=== PATIENT | male | born 1960 | race Caucasian/White ===

== ENCOUNTER 2020-05-05 14:01 | Outpatient (CLI) | payer BC, SELFPAY ==
--- NOTE | ~2020-05-05 | US_ITS ---
EXAMINATION:US venous doppler LE LT INDICATION:Lower extremity pain TECHNIQUE: Multiple grayscale, color flow and Doppler images of the left lower extremity deep venous systems were obtained and reviewed. COMPARISON:No prior studies for comparison. FINDINGS: The common femoral, superficial femoral and popliteal veins demonstrate normal respiratory variation, augmentation and compressibility. Color flow is also seen within the posterior tibial, pe roneal, greater saphenous and profunda veins. IMPRESSION: 1: No lower extremity deep venous thrombosis. Reviewed, dictated and finalized at location A. NESS BANKING MANAGER
== END 2020-05-05 14:02 | disposition home or self-care (01) ==
LOC: ANHIMG 14:11
PROVIDERS: PCP Family Medicine; Visit Provider Nurse Practitioner Family
DX: M79.662 Pain in left lower leg (principal)
CPT/HCPCS: 93971

== ENCOUNTER → 2022-02-10 09:30 | Outpatient (CLI) | payer BC, SELFPAY ==
--- NOTE | ~2022-02-10 | US_ITS ---
EXAMINATION: US scrotum doppler DATE: 02/10/2022 09:57 INDICATION: Scrotal pain, right testicular lump TECHNIQUE: Testicular sonogram utilizing grayscale and Doppler COMPARISON: None. FINDINGS: The right testis measures 4.9 x 2.8 x 4.0 cm. The left testis measures 5.3 x 2.3 x 3.1 cm. There is normal vascular flow to both testes. The right epididymis contains a 2.4 x 2.2 cm cyst or sp ermatocele. The left epididymis contains a 7 mm x 6 mm cyst or spermatocele. There are small bilatera l hydroceles. IMPRESSION: 1. Cyst or spermatocele of the right epididymis corresponding to the palpable abnormality. Reviewed, dictated and finalized at location F. IMPRESSION: 1. Cyst or spermatocele of the right epididymis corresponding to the palpable a bnormality.
== END ==
PROVIDERS: PCP Physician Assistant; Visit Provider Physician Assistant
DX: N50.82 Scrotal pain (principal)
CPT/HCPCS: 76870; 93976

== ENCOUNTER 2022-04-14 17:51 | Inpatient (IN) | payer BC, SELFPAY ==
[2022-04-14] VITALS (9 sets, daily range): BP systolic 108–143; BP diastolic 59–70; PULSE 81–87; RESP 22–36; TEMP 37.1; O2SAT 82–95
--- NOTE | ~2022-04-14 | XR_ITS ---
EXAMINATION: XR chest 1V portable INDICATION: COVID 19 pneumonia TECHNIQUE: Portable AP chest at 0544 hours COMPARISON: 04/14/2022 FINDINGS: There are patchy opacities throughout all lung zones with interval worsening. No pleural ef fusion or pneumothorax. Cardiomegaly is noted. IMPRESSION: 1. Diffuse lung disease with interval worsening, consistent with pneumonia and/or pulmonary edema. Reviewed, dictated and finalized at location A. EL FARMER IMPRESSION: 1. Diffuse lung disease with interval worsening, consistent with pneumonia and/ or pulmonary edema.
--- NOTE | ~2022-04-14 | CT_ITS ---
EXAMINATION: CTA chest PE protocol DATE: 04/14/2022 18:53 INDICATION: Dyspnea. Hypoxia. COVID positive. TECHNIQUE: Computed tomography (CT) pulmonary angiogram of the chest was performed with 100 mL Omnipa que-350 intravenous contrast. Additional 3D reconstructions utilizing coronal maximum intensity proje ction (MIP) were performed. Automated exposure control and iterative reconstruction technique were em ployed. The dose-length product was 1080.22 mGy-cm. COMPARISON: AP abdomen and pelvis dated 10/05/2011 FINDINGS: Good contrast opacification of the pulmonary arteries. There is mild streak artifact from dense contr ast in the superior vena cava and right atrium. Respiratory motion, mild in the mid and upper lung zo jacqueline and severe at the lower lung zones which mildly decreases sensitivity in the basilar segmental pu lmonary arteries and renders assessment in many of the more peripheral basilar subsegmental pulmonary arteries essentially nondiagnostic. No evident pulmonary embolism. Extensive scattered bilateral pat cj groundglass opacities in the right relatively sparing the upper lung zones most likely related to multifocal pneumonia versus less likely pulmonary edema. Calcified right middle lobe nodule along wi th calcified bilateral hilar and mediastinal lymph nodes and numerous small splenic calcifications, a ll consistent with old granulomatous disease. No pleural effusion. Borderline heart size. No pericard ial effusion. Thoracic aorta is normal in caliber with no dissection. Unchanged mild right hilar lymp hadenopathy along with mild mediastinal lymphadenopathy which is likely reactive. Diffuse hepatic lyubov atosis. Chronic mild likely physiologic anterior wedging at T11 and T12. There are bridging osteophyt es at multiple levels in the spine, consistent with diffuse idiopathic skeletal hyperostosis (DISH). IMPRESSION: 1. No definitive pulmonary embolism with sensitivity decreased in the basilar segmental and more sign ificantly in the basilar subsegmental pulmonary arteries due to primarily to respiratory motion. 2. Diffuse patchy bilateral groundglass opacities throughout both lungs relatively sparing the upper lung zones most suspicious for pneumonia with differential including pulmonary edema. 3. Mild cardiomegaly. 4. Mild mediastinal and right hilar lymphadenopathy which is likely reactive. Reviewed, dictated and finalized at location A. PHERE COMMERCE CONSULTANT IMPRESSION: 1. No definitive pulmonary embolism with sensitivity decreased in the basilar s egmental and more significantly in the basilar subsegmental pulmonary arteries due to primarily to respiratory motion. 2. Diffuse patchy bilateral groundglass opacities throughout both lungs relativ anabella sparing the upper lung zones most suspicious for pneumonia with differentia l including pulmonary edema. 3. Mild cardiomegaly. 4. Mild mediastinal and right hilar lymphadenopathy which is likely reactive.
--- NOTE | ~2022-04-14 | XR_ITS ---
EXAMINATION: XR chest 1V portable DATE: 04/18/2022 06:14 INDICATION: Respiratory failure. TECHNIQUE: A single frontal view of the chest was obtained. COMPARISON: Chest single view 04/17/2022, chest CT 04/14/2022 FINDINGS: A calcified right lung nodule and calcified right hilar lymph nodes are consistent with old granulomatous disease. There are patchy airspace opacities in all lung zones bilaterally. No pleural effusion or pneumothorax. Cardiomegaly is noted. A right upper extremity peripherally inserted centr al venous catheter (PICC) is seen with tip at the superior cavoatrial junction. IMPRESSION: 1. Stable diffuse lung disease, consistent with COVID-19 pneumonia. 2. Cardiomegaly. Reviewed, dictated and finalized at location A. HOTHERAPIST
--- NOTE | ~2022-04-14 | XR_ITS ---
EXAMINATION: XR chest ET placement DATE: 04/20/2022 10:42 INDICATION: Intubation. TECHNIQUE: A single frontal view of the chest was obtained on 2 radiographs. COMPARISON: Chest single view at 6:24 AM FINDINGS: There are airspace opacities in all lung zones bilaterally. A calcified right lung nodule a nd calcified right hilar lymph nodes are consistent with old granulomatous disease. No pleural effusi on or pneumothorax. Cardiomegaly is noted. The endotracheal tube tip is 5.0 cm above the aleyda. The nasogastric tube tip is beyond the inferior margin of the radiograph, but at least to the stomach. A right upper extremity peripherally inserted central venous catheter (PICC) is seen with tip in the mai perior vena cava. IMPRESSION: 1. Stable diffuse lung disease, consistent with COVID-19 pneumonia. 2. Cardiomegaly. Reviewed, dictated and finalized at location A. ANICAL TECH
--- NOTE | ~2022-04-14 | XR_ITS ---
EXAMINATION: XR chest 1V portable DATE: 04/21/2022 06:25 INDICATION: Respiratory failure. TECHNIQUE: A single frontal view of the chest was obtained on 2 radiographs. COMPARISON: Chest single view 04/20/2022, chest CT 04/14/2022 FINDINGS: There are airspace opacities in all lung zones bilaterally. A calcified right lung nodule a nd calcified right hilar lymph nodes are consistent with old granulomatous disease. No pleural effusi on or pneumothorax. The heart size is normal. The endotracheal tube tip is 3.9 cm above the aleyda. A right upper extremity peripherally inserted central venous catheter (PICC) is seen with tip in the s uperior vena cava. The nasogastric tube tip is in the distal stomach. IMPRESSION: 1. Worsened diffuse lung disease, consistent with pneumonia versus pulmonary edema versus acute respi ratory distress syndrome (ARDS). Reviewed, dictated and finalized at location A. ONAL SALES MANAGER IMPRESSION: 1. Worsened diffuse lung disease, consistent with pneumonia versus pulmonary ed prakash versus acute respiratory distress syndrome (ARDS).
--- NOTE | ~2022-04-14 | XR_ITS ---
EXAMINATION: XR chest 1V portable DATE: 04/19/2022 05:58 INDICATION: Respiratory failure TECHNIQUE: frontal and lateral views of the chest were obtained. COMPARISON: Chest radiograph dated 04/18/2022 FINDINGS: No significant change in patchy airspace opacities throughout both lungs. Calcified nodule at the rig ht lung base consistent with old granulomatous disease. No pleural effusion or pneumothorax. Cardiome toribio. IMPRESSION: 1. Unchanged diffuse bilateral lung disease which could represent pneumonia or pulmonary edema. 2. Cardiomegaly. Reviewed, dictated and finalized at location A. PROCESSING UTILITY WORKER
--- NOTE | ~2022-04-14 | XR_ITS ---
EXAMINATION: XR chest 1V portable DATE: 04/20/2022 06:30 INDICATION: Respiratory failure. TECHNIQUE: A single frontal view of the chest was obtained. COMPARISON: Chest single view 04/19/2022, chest CT 04/14/2022 FINDINGS: There are airspace opacities in all lung zones bilaterally. A calcified right lung nodule a nd calcified right hilar lymph nodes are consistent with old granulomatous disease. No pleural effusi on or pneumothorax. Cardiomegaly is noted. A right upper extremity peripherally inserted central veno us catheter (PICC) is seen with tip in the superior vena cava. IMPRESSION: 1. Stable diffuse lung disease, consistent with COVID-19 pneumonia. 2. Cardiomegaly. Reviewed, dictated and finalized at location A. S ANALYTICS MANAGER
--- NOTE | ~2022-04-14 | XR_ITS ---
EXAMINATION: XR abdomen NG/feed tube insert DATE: 04/20/2022 10:42 INDICATION: Nasogastric tube placement. TECHNIQUE: A semierect view of the abdomen was obtained. COMPARISON: None. FINDINGS: The lower abdomen and right lateral aspect of the abdomen are excluded. The nasogastric tub e tip is in the stomach. IMPRESSION: 1. Nasogastric tube tip in the stomach. Reviewed, dictated and finalized at location A. S AND MARKETING COORDINATOR
--- NOTE | ~2022-04-14 | XR_ITS ---
EXAMINATION: XR chest 1V portable DATE: 04/17/2022 06:43 INDICATION: Respiratory failure. TECHNIQUE: A single frontal view of the chest was obtained on 2 radiographs. COMPARISON: Chest single view 04/16/2022, chest CT 04/14/2022 FINDINGS: There are patchy airspace opacities throughout the lungs bilaterally. A calcified right jeet g nodule and calcified right hilar lymph nodes are consistent with old granulomatous disease. No pleu ral effusion or pneumothorax. Cardiomegaly is noted. There are prominent paracardial fat pads. IMPRESSION: 1. Diffuse lung disease with mild worsening, consistent with COVID-19 pneumonia. 2. Cardiomegaly. Reviewed, dictated and finalized at location A. AL ASSAULT RESPONSE COORDINATOR IMPRESSION: 1. Diffuse lung disease with mild worsening, consistent with COVID-19 pneumonia . 2. Cardiomegaly.
--- NOTE | ~2022-04-14 | XR_ITS ---
EXAMINATION: XR chest 1V portable DATE: 04/14/2022 18:16 INDICATION: Shortness of breath and hypoxia TECHNIQUE: frontal view of the chest was obtained. COMPARISON: Chest radiograph dated 09/15/2011 FINDINGS: New patchy airspace opacities in the bilateral mid and lower lung zones. Unchanged calcified nodule a t the right lung base consistent with old granulomatous disease. No pleural effusion or pneumothorax. Mild cardiomegaly. IMPRESSION: 1. Patchy airspace opacities in bilateral mid and lower lung zones which could represent pulmonary ed prakash or pneumonia. 2. Cardiomegaly. Reviewed, dictated and finalized at location A. ECTOR AND UNLOADER IMPRESSION: 1. Patchy airspace opacities in bilateral mid and lower lung zones which could represent pulmonary edema or pneumonia. 2. Cardiomegaly.
--- NOTE | 2022-04-14 18:06 | ECG_ITS ---
Measurements Intervals [place] Rate: 84 P: 158 PA: 206 QRS: 195 QRSD: 117 T: 135 QT: 335 QTc: 398 Interpretive Statements SINUS RHYTHM ARM LEADS REVERSED [INVERTED P AND QRS IN I] ATYPICAL ECG NO PREVIOUS ECG AVAILABLE FOR COMPARISON Electronically Signed On 04-15-2022 8:38:29 FIELD SERVICES DIRECTOR by Linette Julian M.D.
--- NOTE | 2022-04-14 18:19 | ED.SOB ---
HPI - SOB/Dyspnea General Chief Complaint: Shortness of Breath/Dyspnea Stated Complaint: Covid + Sunday, SOB, dyspnea Time Seen by Provider: 04/14/22 18:10 History of Present Illness HPI Narrative: Patient is a 61-year-old male with a history of hypertension, hyperlipidemia, GERD, diabetes presenting with shortness of breath. Patient states that he tested positive for COVID-19 approximately 5 days ago. Since that time he has been recovering at home. States that he has been feeling generally fatigued as well as short of breath especially whenever he exerts himself or talks. States that he has been checking his oxygen levels and they dipped into the 60s a couple of days ago. Patient states that he woke up feeling short of breath this morning and he was keeping an eye on his pulse ox and states that it dropped into the low 70s. States that he was talking to family members who advised that he come to the ER. Currently, he states that he feels short of breath only when he talks. He denies chest pain, lightheadedness, palpitations. Denies headache, fevers, abdominal pain, nausea or vomiting, diarrhea, leg swelling. Related Data Home Medications Medication Instructions Recorded Confirmed aspirin 81 mg tablet,delayed 81 mg PO DAILY 04/15/19 04/15/22 release losartan 100 mg tablet 100 mg PO DAILY 04/15/19 04/15/22 cetirizine 10 mg tablet (Zyrtec) 10 mg PO DAILY 04/15/22 04/15/22 ibuprofen 600 mg tablet 600 mg PO Q6H PRN Pain 04/15/22 04/15/22 Allergies Allergy/AdvReac Type Severity Reaction Status Date / Time No Known Allergies Allergy Unknown Verified 02/07/22 09:59 Review of Systems Review of Systems: All systems reviewed & are unremarkable except as noted in HPI and below PMFSH Past Medical History Medical History GERD (gastroesophageal reflux disease) IFG (impaired fasting glucose) Obesity Obesity Surgical History Surgical History History of bilateral knee replacement Family History Family History Sibling Patient's sister is in good health Patient's brother is in good health Social History Social History Social History: Smoking status: Never smoker Second hand tobacco smoke exposure: No Alcohol intake: never Substance use: never Substance use type: does not use Lack of Transportation: No Lack of Food: Never True Current Housing: I Have Housing Concerned About Future Housing: No Difficulty Paying Gas/Electric Bills: No Difficulty Paying for Meds: No Currently Unemployed: No Education: Decline to Answer Difficulty w/ Childcare or Family Care: No Gender identity (if verbalized by the patient): Male Sexual Orientation (if Verbalized by the Patient): Straight or Heterosexual Spiritual care concerns: No Exam Narrative: GENERAL: Ill-appearing but in no acute distress HEAD: Normocephalic, atraumatic. EYES: PERRLA and EOMI. ENT: Nares clear, no rhinorrhea or epistaxis. Mucous membranes moist. NECK: Supple. CHEST: Clear to auscultation. Tachypnea, saturating 90 to 92% on 6 L nasal cannula HEART: Regular rate and rhythm. No murmur heard. Normal peripheral pulses. ABDOMEN: Soft, nontender, nondistended, normal active bowel sounds. EXTREMITIES: Normal range of motion. No edema. SKIN: Warm, dry, no rash. NEURO: No focal deficits. Alert and oriented x3. PSYCH: Normal mood and affect. Course Vital Signs Vital signs: Vital Signs Temperature 98.7 F 04/14/22 18:02 Pulse Rate 83 04/14/22 18:02 Respiratory Rate 36 H 04/14/22 18:02 Blood Pressure 117/59 L 04/14/22 18:02 Pulse Oximetry 82 L 04/14/22 18:02 Oxygen Delivery Room Air 04/14/22 18:02 Temperature 97.6 F 04/15/22 20:00 Pulse Rate 68 04/15/22 21:00 Respi
[2022-04-14 18:23] LABS: Basophils Absolute Auto 0.1 K/mm3 (0.0-0.1); Basophils Percent Auto 0.4 % (0.2-1.2); Eosinophils Absolute Auto 0.1 K/mm3 (0-0.3); Eosinophils Percent Auto 1.2 % (0-4.4); Hematocrit 36.4 % (42.0-52.0); Hemoglobin 12.5 g/dL (14.0-18.0); Immature Granulocyte Absolute 0.24 K/mm3 (0.00-0.031); Immature Granulocyte Percent A 2.2 % (0-0.5); Lymphocytes Absolute Auto 0.54 K/mm3 (0.9-3.2); Lymphocytes Percent Auto 4.9 % (18.3-44.2); Mean Corpuscular HGB Conc 34.3 g/dl (32-36); Mean Corpuscular Hemoglobin 28.9 pg (26-34); Mean Corpuscular Volume 84.3 fl (80-100); Mean Platelet Volume 9.4 fl (7.4-10.4); Monocytes Absolute Auto 0.5 K/mm3 (0.1-0.6); Monocytes Percent Auto 4.7 % (2.6-8.5); Neutrophils Absolute Auto 9.7 K/mm3 (1.3-6.7); Neutrophils Percent Auto 86.6 % (45.5-73.1); Platelet Count Result 201 k/mm3 (150-375); Red Blood Count 4.32 M/mm3 (4.6-6.20); Red Cell Distribution Width 13.6 % (11.5-14.5); White Blood Count 11.1 K/mm3 (4.5-10.0)
[2022-04-14 18:32] LABS: Alanine Aminotransferase 31 U/L (6-50); Albumin Level 4.2 g/dL (3.5-5.1); Alkaline Phosphatase 85 U/L (38-126); Anion Gap 10 mmol/L (8-16); Aspartate Amino Transferase 35 U/L (17-59); Bilirubin,Total 1.6 mg/dL (0.2-1.3); Blood Urea Nitrogen 35 mg/dL (9-20); Calcium 8.6 mg/dL (8.4-10.2); Carbon Dioxide 26 mmol/L (22-30); Chloride 93 mmol/L (98-107); Estimated CRCL calculation 58 ml/min; Estimated Glomerular Filt Rate 36; Glucose 275 mg/dL (65-110); Potassium 3.9 mmol/L (3.4-5.0); Sodium 129 mmol/L (137-145)
[2022-04-14 18:33] LABS: INR 1.2; Prothrombin Time 14.5 Seconds (11.1-14.7)
[2022-04-14 18:34] LABS: Partial Thromboplastin Time 41.3 SECONDS (22.3-36.8)
[2022-04-14] MEDS: SODIUM CHLORIDE 0.9% IV 1,000 ML 999 ML IV CONT (18:35)
[2022-04-14 18:44] LABS: NT Pro B Type Natriuretic Pept 78 pg/mL (5-100); Troponin I < 0.012 ng/mL (0.000-0.034)
[2022-04-14 19:14] LABS: Influenza A QL RT-PCR Negative (Negative); Influenza B QL RT-PCR Negative (Negative); SARS-CoV-2 RNA PCR Positive
--- NOTE | 2022-04-14 20:16 | PM.IMHP ---
H&P: HPI History of Present Illness Date/Time: 04/14/22 20:16 Chief Complaint: sob Narrative: This is a 61-year-old male with past medical history significant for morbid obesity, type 2 diabetes mellitus, hypertension, GERD. PATIENT PRESENTED TO THE EMERGENCY ROOM DUE TO WORSENING SHORTNESS OF BREATH, LOSS OF SENSE OF TASTE AND SMELL, COUGH, NONPRODUCTIVE, body aches and pains, fever fevers, chills, rigors. Patient tested positive for COVID with a home kit test. Preliminary workup here was significant for chest x-ray was reported as: IMPRESSION: 1. Patchy airspace opacities in bilateral mid and lower lung zones which could represent pulmonary edema or pneumonia. 2. Cardiomegaly. CT angiogram of the chest IMPRESSION: 1. No definitive pulmonary embolism with sensitivity decreased in the basilar segmental and more significantly in the basilar subsegmental pulmonary arteries due to primarily to respiratory motion. 2. Diffuse patchy bilateral groundglass opacities throughout both lungs relatively sparing the upper lung zones most suspicious for pneumonia with differential including pulmonary edema. 3. Mild cardiomegaly. 4. Mild mediastinal and right hilar lymphadenopathy which is likely reactive. Review of Systems Review of Systems: shortness of breath, body aches and pains, fevers, chills, rigors Constitutional: Constitutional: Reports body ache(s), Reports chills, Reports fever(s), Reports malaise, Reports night sweats and Reports poor appetite Eyes: Eyes: Denies change in vision ENT: Denies dysphagia, Denies vertigo, Denies dizziness and Denies odynophagia Cardiovascular: Cardiovascular: Denies chest pain and Denies leg edema Respiratory: Respiratory: Reports cough and Reports dyspnea Gastrointestinal: Gastrointestinal: Denies abdominal pain, Denies dyspepsia, Denies heartburn, Denies diarrhea, Denies nausea and Denies vomiting Genitourinary: Genitourinary: Denies dysuria Musculoskeletal: Musculoskeletal: Reports myalgias Integumentary/Breasts: Skin/Breast: Denies rash Neurologic: Denies vertigo, Denies dizziness, Denies focal weakness and Denies Sensory deficit (Neuro) Psychiatric: Psychiatric: Reports no additional psychiatric complaints and Reports as per HPI Endocrine: Endocrine: Reports no additional endocrine complaints and Reports as per HPI Hematologic/Lymphatic: Hematologic/Lymphatic: Reports no additional hematologic/lymphatic complaints and Reports as per HPI Allergic/Immunologic: Allergic/Immunologic: Reports no additional allergic/immunologic complaints and Reports as per HPI PMFSH Past Medical History Medical History GERD (gastroesophageal reflux disease) IFG (impaired fasting glucose) Obesity Obesity Surgical History Surgical History History of bilateral knee replacement Family History Family History Sibling Patient's sister is in good health Patient's brother is in good health Social History Social History Social History: Smoking status: Never smoker Second hand tobacco smoke exposure: No Alcohol intake: never Substance use: never Substance use type: does not use Gender identity (if verbalized by the patient): Male Sexual Orientation (if Verbalized by the Patient): Straight or Heterosexual Meds Home Medications and Allergies Home Medications Medication Instructions Recorded Confirmed Type aspirin 81 mg tablet,delayed 81 mg PO DAILY 04/15/19 02/17/22 History release losartan 100 mg tablet 100 mg PO DAILY 04/15/19 02/17/22 History atorvastatin 20 mg tablet 20 mg PO DAILY 04/21/20 02/17/22 History ezetimibe 10 mg tablet (Zetia) 10 mg PO DAILY #90 tabs 03/14/21 02/17/22 Rx amlodipine 10 mg tablet (Norvasc) 10 mg PO DAILY #90 tab
[2022-04-14 21:43] LABS: Alveolar/Arterial O2 Gradient 55.3 mmHg; Base Excess ABG -3.2 mEq/l (+/-2.0); Fractional Inspired Oxygen 21 %; HCO3 ABG 20.1 mEq/l (22.0-26.0); Oxygen Content ABG 16.5 %vol (16.0-22.0); Oxygen Saturation ABG 90.6 % (95.0-100.0); PCO2 ABG 31.4 mmHg (35.0-45.0); PO2 ABG 56.8 mmHg (80.0-100.0); Total Hemoglobin 13.4 g/dL (12.0-18.0); pH ABG 7.425 (7.350-7.450)
[2022-04-14 21:46] LABS: Device NASAL CANNULA; Modified Allen's Test Pass; Oxyhemoglobin 87.6 % THb (90.0-100.0); Site Drawn RIGHT RADIAL
[2022-04-14 22:01] LABS: Troponin I < 0.012 ng/mL (0.000-0.034)
[2022-04-14] MEDS: cefTRIAXone 2 GM in SODIUM CHLORIDE 0.9% IV 100 ML 200 ML IVPB (22:15)
--- NOTE | 2022-04-14 22:23 | PCRCNOTE ---
per MD verbal order pt placed on BIPAP 11/09.
--- NOTE | 2022-04-14 22:41 | PC.NURSE ---
[place] dr zhang ok to cancel plasma at this time.
[2022-04-15] VITALS (28 sets, daily range): BP systolic 109–142; BP diastolic 52–63; PULSE 61–121; RESP 22–33; TEMP 36.2–37.3; O2SAT 87–94
[2022-04-15] MEDS: REMDESIVIR 200 MG/NS 250 ML 200 MG/250 ML BAG 250 MG IVPB (00:24)
[2022-04-15] MEDS: ALBUTEROL SULFATE NEB 2.5 MG/3 ML INH INHALATION ×5 (02:55→20:55)
[2022-04-15] MEDS: IPRATROPIUM BR 0.02% INH SOLN 0.5 MG/2.5 ML VIAL INHALATION ×5 (02:55→20:56)
--- NOTE | 2022-04-15 03:41 | ADMGEN ---
This patient, Charles Posadas, was admitted to IMU Room 207-01 on 04/15/22 at 0232. Patient/family oriented to hospital policies and general routines including ID bracelet, bed and alarms, visiting hours, pain management, procedures, bathroom and other care routines, personal items, smoking policy, room service/diet, and visiting hours. Information on how to activate the Rapid Response Team has been discussed. Patient/Family are encouraged to report perceived risks to care and to ask questions if they do not understand what they are told or what they should do.
[2022-04-15 05:30] LABS: INR 1.3; Prothrombin Time 15.7 Seconds (11.1-14.7)
[2022-04-15 05:43] LABS: Alanine Aminotransferase 27 U/L (6-50); Estimated CRCL calculation 61 ml/min; Estimated Glomerular Filt Rate 38
--- NOTE | 2022-04-15 09:43 | PM.IMPN ---
Progress Note: A&P Assessment and Plan (1) Pneumonia due to 2019 novel coronavirus: Code(s): U07.1 - COVID-19; J12.82 - Pneumonia due to coronavirus disease 2019 Status: Acute Assessment and Plan: patient started on remdesivir Rocephin and Zithromax for antibacterial coverage blood cultures in progress supportive care (2) Respiratory failure with hypoxia: Code(s): J96.91 - Respiratory failure, unspecified with hypoxia Status: Acute Assessment and Plan: continue supplemental oxygen by nasal cannula (3) GERD (gastroesophageal reflux disease): Code(s): K21.9 - Gastro-esophageal reflux disease without esophagitis Status: Acute Assessment and Plan: PPI (4) Diastolic dysfunction: Code(s): I51.89 - Other ill-defined heart diseases Status: Acute Assessment and Plan: continue to monitor (5) SHANNAN (obstructive sleep apnea): Code(s): G47.33 - Obstructive sleep apnea (adult) (pediatric) Status: Acute Assessment and Plan: CPAP at nighttime Subjective Date/time seen: 04/15/22 09:43 Patient was seen during the morning rounds today. Mild shortness of breath. No chest pain. No abdominal pain, nausea, no vomiting. Mood stable. Review of Systems Constitutional: Constitutional: Reports body ache(s), Reports chills, Reports fever(s), Reports malaise, Reports night sweats and Reports poor appetite Eyes: Eyes: Denies change in vision ENT: Denies dysphagia, Denies vertigo, Denies dizziness and Denies odynophagia Cardiovascular: Cardiovascular: Denies chest pain, Denies leg edema and Reports dyspnea Respiratory: Respiratory: Reports cough and Reports dyspnea Gastrointestinal: Gastrointestinal: Denies abdominal pain, Denies dysphagia, Denies dyspepsia, Denies heartburn, Denies diarrhea, Denies nausea, Denies odynophagia and Denies vomiting Genitourinary: Genitourinary: Denies dysuria Musculoskeletal: Musculoskeletal: Reports myalgias Integumentary/Breasts: Skin/Breast: Denies rash Neurologic: Denies vertigo, Denies dizziness, Denies focal weakness and Denies Sensory deficit (Neuro) Psychiatric: Psychiatric: Reports no additional psychiatric complaints and Reports as per HPI Endocrine: Endocrine: Reports no additional endocrine complaints and Reports as per HPI Hematologic/Lymphatic: Hematologic/Lymphatic: Reports no additional hematologic/lymphatic complaints and Reports as per HPI Allergic/Immunologic: Allergic/Immunologic: Reports no additional allergic/immunologic complaints and Reports as per HPI Exam Narrative: patient is laying in a stretcher Const: General: cooperative, comfortable, no acute distress, well developed, alert, awake, ill appearing, average body habitus and overweight Nutritional Appearance: average body habitus and overweight Orientation/consciousness: patient oriented x3 HENMT: Head: normal to inspection, normocephalic and atraumatic Ears: hearing grossly normal bilaterally Face/Nose/Sinus: normal facial exam Face and sinus: normal facial exam Eyes: General: appearance normal, both eyes and all related structures Pupils: Equal, round and reactive pupils present EOM: EOMs intact bilaterally Neck: Neck: full ROM, no lymphadenopathy and no JVD Thyroid: thyroid normal Lymphatic: no lymphadenopathy noted Resp: Effort & Inspection: normal respiratory effort and able to speak in complete sentences Auscultation: clear to auscultation bilaterally and diminished lung sounds Cardio: Jugular venous distension: no JVD Rate: regular rate Rhythm: regular rhythm Heart sounds: S1 normal heart sound present and S2 normal heart sound present GI: Inspection: Pannus present and obesity : General: Yes deferred Skin: Rashes: no rashes Wounds: no wounds Neuro: General: patient oriented x3, CN's II-XI intact bilaterally and Unable to assess gait Cranial nerves: Yes CN's II-XII intact bilaterally and Ye
--- NOTE | 2022-04-15 10:13 | PM.CNPUL ---
Assessment and Plan Assessment and plan (1) Pneumonia due to 2019 novel coronavirus: Code(s): U07.1 - COVID-19; J12.82 - Pneumonia due to coronavirus disease 2019 Status: Acute Assessment and Plan: Patient tested positive at home for COVID-19 on 04/09 and in hospital on 04/14 and started on remdesivir, dexamethasone on 04/14 and I have ordered tocilizumab on 04/15. Emperically started on ceftriaxone and azithromycin. - Remdesivir for 10 days Unless he should recover and tolerate room air with rest, ambulation and while sleeping. - Dexamethasone 6 mg IV for 10 days - Continuous pulse oximetry - Prone positioning as tolerated. he is morbidly obese and this is difficult to achieve. - Avoid any fluid overload. - emperic azihtromycin and ceftraixone for CAP. - Albuterol and ipratroprium inhaler Q 4 for now, no wheezes. - Negative influenza swab. Keep saturations are 90-94% with Noninvasive ventilator with the AVAPS mode. I discussed code status with patient and he does wish to be intubated if needed. I notified the floor scrubber of this patient. Discussed with Dr. Ayala and Dr. Hwang Will follow with you. (2) Respiratory failure with hypoxia: Code(s): J96.91 - Respiratory failure, unspecified with hypoxia Status: Acute Assessment and Plan: Etiology of hypoxic respiratory failure is likely COVID pneumonia. patient has a history of hypertension but normal LVEF on last echo with grade 1 diastolic dysfunction. BNP is 78 and no evidence of fluid overload. CT angiogram with was without pulmonary embolism. 04/14 16:00 RA sats 82%, 6 L NC 92% with ABG 7.43//04/14 22:30 BiPAP 15/5 50% initiated 04/15 02:30 BiPAP 15/5 50%, sats 94% 04/15 08:00 BiPAP 15/5 90%, sats 92% 04/15 11:30 AVAPS 650, EPAP 10, 90% sats 91%. I will check a blood gas. Goal saturations are 90-94%. History of Present Illness History of Present Illness Consult date: 04/15/22 Chief complaint: Covid+ Narrative: 04/15/2022: This is a new pulmonary consult for COVID pneumonia. 61-year-old man with a history of obstructive sleep apnea, hypertension, hyperlipidemia, GERD, diabetes, coronary artery disease with an out obstructive coronary catheterization in 2011, Right renal cell carcinoma status post nephrectomy, bilateral knee replacements presented to [facility] Emergency Department on 04/14 with shortness of breath. patient has his right knee replaced March of 2021 and his left knee replaced in August of 2021. After his 1st knee replacement he could not go back to work. He has been slowly recovering and states that he can only walk 1 block because of dyspnea on exertion. He has had weight gain since these operations. Patient is a never smoker, was exposed to secondhand smoke from both parents. No secondhand smoke currently. Patient denies and blasting, welding, asbestos were, professional painting. 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 He is exposed to toxic chemicals and wears a face shield regularly but does not wear any respiratory protection. Patient developed sinus congestion and shortness of breath that were different than his usual sinus congestion and performed a home COVID test on 04/09 2022. His saturations were 93%. He called his PCP and was instructed to self quarantine and call for worsening symptoms. On 04/10 Patient developed fever, worsening short breath and patient's saturations were 90%. on 04/11 the patient notice that his saturations were in the mid 60s but would come up into the mid 80s. On 04/12 the patient's saturation remained in the 70s. On 04/13 the saturations remained in the 70s and 80s for most of the day. The patient continued to have fever on 04/13. Patient presented to the emergency room on 04/14 and in the emergency room, room air saturations were 82% and increased to 90-92% on 6 L. Lungs were clear to
[2022-04-15] MEDS: amLODIPine BESYLATE 5 MG TABLET 10 MG PO (11:33)
[2022-04-15] MEDS: EZETIMIBE 10 MG TABLET PO (11:33)
[2022-04-15] MEDS: ASPIRIN 81 MG ENTERIC TABLET PO (11:33)
[2022-04-15] MEDS: LORATADINE 10 MG TABLET PO (11:33)
[2022-04-15] MEDS: minoxidiL 2.5 MG TABLET PO (11:33)
[2022-04-15] MEDS: SPIRONOLACTONE 25 MG TABLET PO (11:34)
[2022-04-15] MEDS: LOSARTAN POTASSIUM 100 MG TABLET PO (12:19)
[2022-04-15] MEDS: TOCILIZUMAB 800 MG in SODIUM CHLORIDE 0.9% IV 60 ML 100 MG IVPB (12:20)
[2022-04-15 12:26] LABS: Alveolar/Arterial O2 Gradient 545.8 mmHg; Base Excess ABG -4.9 mEq/l (+/-2.0); Fractional Inspired Oxygen 90 %; HCO3 ABG 19.8 mEq/l (22.0-26.0); Oxygen Content ABG 16.4 %vol (16.0-22.0); Oxygen Saturation ABG 90.3 % (95.0-100.0); Oxyhemoglobin 88.5 % THb (90.0-100.0); PCO2 ABG 35.4 mmHg (35.0-45.0); PO2 ABG 59.6 mmHg (80.0-100.0); PO2 FiO2 Ratio Arterial Blood 0.66 %; Total Hemoglobin 13.2 g/dL (12.0-18.0); pH ABG 7.365 (7.350-7.450)
[2022-04-15 12:27] LABS: Device NON-INVASIVE VENT; Modified Allen's Test Pass; Non-Invasive Expiratory Pressure 10 CMH2O; Non-Invasive Vent Rate 20 /MIN; Site Drawn LEFT RADIAL
[2022-04-15 12:43] LABS: CRP 37.1 mg/dL (<1.0)
[2022-04-15] MEDS: SODIUM CHLORIDE 0.45% 1,000 ML 50 ML IV CONT (15:11)
[2022-04-15] MEDS: REMDESIVIR 100 MG/NS 250 ML 100 MG/250 ML BAG 250 MG IVPB (22:14)
[2022-04-16] VITALS (27 sets, daily range): BP systolic 104–156; BP diastolic 38–88; PULSE 58–80; RESP 22–31; TEMP 35.8–36.9; O2SAT 86–100
[2022-04-16] MEDS: ALBUTEROL SULFATE NEB 2.5 MG/3 ML INH INHALATION ×4 (02:38→13:38)
[2022-04-16] MEDS: IPRATROPIUM BR 0.02% INH SOLN 0.5 MG/2.5 ML VIAL INHALATION ×6 (02:38→23:24)
[2022-04-16 07:01] LABS: Alanine Aminotransferase 27 U/L (6-50); Estimated CRCL calculation 61 ml/min; Estimated Glomerular Filt Rate 38
[2022-04-16 07:05] LABS: INR 1.3; Prothrombin Time 15.8 Seconds (11.1-14.7)
--- NOTE | 2022-04-16 08:43 | PM.PNPUL ---
Progress Note: A&P Assessment and Plan (1) Pneumonia due to 2019 novel coronavirus: Code(s): U07.1 - COVID-19; J12.82 - Pneumonia due to coronavirus disease 2019 Status: Acute Assessment and Plan: Patient tested positive at home for COVID-19 on 04/09 and in hospital on 04/14 and started on remdesivir, dexamethasone on 04/14 and tocilizumab on 04/15. Emperically started on ceftriaxone and azithromycin. - Remdesivir for 10 days Unless he should recover and tolerate room air with rest, ambulation and while sleeping. - Dexamethasone 6 mg IV for 10 days - Continuous pulse oximetry - Prone positioning as tolerated. he is morbidly obese and this is difficult to achieve. - Avoid any fluid overload. - emperic azihtromycin and ceftraixone for CAP. - Albuterol and ipratroprium inhaler Q 4 for now, no wheezes. - Negative influenza swab. 04/15 Keep saturations are 90-94% with Noninvasive ventilator with the AVAPS mode. I discussed code status with patient and he does wish to be intubated if needed. I notified the search director of this patient. CRP returned as 37.1. 04/16 patient with worsening chest x-ray and worsening oxygenation despite maximal support with noninvasive ventilator and the AVAPS mode. Currently he is on cefepime, azithromycin and we will add vancomycin. Recommend transfer to intensive care unit. Discussed with Dr. Ayala and Dr. Hwang Will follow with you. (2) Respiratory failure with hypoxia: Code(s): J96.91 - Respiratory failure, unspecified with hypoxia Status: Acute Assessment and Plan: Etiology of hypoxic respiratory failure is likely COVID pneumonia. patient has a history of hypertension but normal LVEF on last echo with grade 1 diastolic dysfunction. BNP is 78 and no evidence of fluid overload. CT angiogram with was without pulmonary embolism. 04/14 16:00 RA sats 82%, 6 L NC 92% with ABG 7.4304/14 22:30 BiPAP 15/5 50% initiated 04/15 02:30 BiPAP 15/5 50%, sats 94% 04/15 08:00 BiPAP 15/5 90%, sats 92% 04/15 11:30 AVAPS 650, EPAP 10, 90% sats 91%. ABG 7.37/35/60 04/15 21:00 AVAPS 650, EPAP 10, 90%, sats 91% 04/16 00:30 AVAPS 650, EPAP 10, 100%, sats 92 04/16 08:30 AVAPS 650, EPAP 10, 100%, sats 88%, increased EPAP to 13 (did not tolerate EPAP 15 as high leak) I will check a blood gas. Goal saturations are 90-94%. Subjective Date/time seen: 04/16/22 08:43 Interval history: 04/15/2022:? This is a new pulmonary consult for COVID pneumonia.? ?61-year-old man with a history of obstructive sleep apnea, hypertension, hyperlipidemia, GERD, diabetes, coronary artery disease with an out obstructive coronary catheterization in 2011, ? Right renal cell carcinoma status post nephrectomy,? bilateral knee replacements? presented to [facility] Emergency Department on 04/14 with shortness of breath. ?patient has his right knee replaced March of 2021 and his left knee replaced in August of 2021.? After his 1st knee replacement he could not go back to work.? He has been slowly recovering and states that he can only walk 1 block because of dyspnea on exertion.? He has had weight gain since these operations. ? Patient is a never smoker, was exposed to secondhand smoke from both parents.? No secondhand smoke currently.? Patient denies and blasting, welding, asbestos were, professional painting.? 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 He is exposed to toxic chemicals and wears a face shield regularly but does not wear any respiratory protection. ?? Patient developed sinus congestion and shortness of breath that were different than his usual sinus congestion and performed a home COVID test on 04/09 2022.? His saturations were 93%.? He called his? PCP and was instructed to self quarantine and call for worsening symptoms.? On 04/10 ? Patient developed fever, worsening short breath and patient's saturations were 90%.? on 04/11
--- NOTE | 2022-04-16 08:52 | PM.IMPN ---
Progress Note: A&P Assessment and Plan (1) Pneumonia due to 2019 novel coronavirus: Code(s): U07.1 - COVID-19; J12.82 - Pneumonia due to coronavirus disease 2019 Status: Acute Assessment and Plan: patient started on remdesivir Rocephin and Zithromax for antibacterial coverage blood cultures in progress supportive care (2) Respiratory failure with hypoxia: Code(s): J96.91 - Respiratory failure, unspecified with hypoxia Status: Acute Assessment and Plan: continue supplemental oxygen by nasal cannula (3) GERD (gastroesophageal reflux disease): Code(s): K21.9 - Gastro-esophageal reflux disease without esophagitis Status: Acute Assessment and Plan: PPI (4) Diastolic dysfunction: Code(s): I51.89 - Other ill-defined heart diseases Status: Acute Assessment and Plan: continue to monitor (5) SHANNAN (obstructive sleep apnea): Code(s): G47.33 - Obstructive sleep apnea (adult) (pediatric) Status: Acute Assessment and Plan: CPAP at nighttime Subjective Date/time seen: 04/16/22 08:52 Patient was seen during the morning rounds today. Patient still has shortness of breath. Patient is requiring BiPAP today. No chest pain. No abdominal pain, nausea, vomiting. Mood stable. Review of Systems Constitutional: Constitutional: Reports body ache(s), Reports chills, Reports fever(s), Reports malaise, Reports night sweats and Reports poor appetite Eyes: Eyes: Denies change in vision ENT: Denies dysphagia, Denies vertigo, Denies dizziness and Denies odynophagia Cardiovascular: Cardiovascular: Denies chest pain, Denies leg edema and Reports dyspnea Respiratory: Respiratory: Reports cough and Reports dyspnea Gastrointestinal: Gastrointestinal: Denies abdominal pain, Denies dysphagia, Denies dyspepsia, Denies heartburn, Denies diarrhea, Denies nausea, Denies odynophagia and Denies vomiting Genitourinary: Genitourinary: Denies dysuria Musculoskeletal: Musculoskeletal: Reports myalgias Integumentary/Breasts: Skin/Breast: Denies rash Neurologic: Denies vertigo, Denies dizziness, Denies focal weakness and Denies Sensory deficit (Neuro) Psychiatric: Psychiatric: Reports no additional psychiatric complaints and Reports as per HPI Endocrine: Endocrine: Reports no additional endocrine complaints and Reports as per HPI Hematologic/Lymphatic: Hematologic/Lymphatic: Reports no additional hematologic/lymphatic complaints and Reports as per HPI Allergic/Immunologic: Allergic/Immunologic: Reports no additional allergic/immunologic complaints and Reports as per HPI Exam Narrative: patient is laying in a bed Const: General: cooperative, comfortable, no acute distress, well developed, alert, awake, ill appearing, average body habitus and overweight Nutritional Appearance: average body habitus and overweight Orientation/consciousness: patient oriented x3 HENMT: Head: normal to inspection, normocephalic and atraumatic Ears: hearing grossly normal bilaterally Face/Nose/Sinus: normal facial exam Face and sinus: normal facial exam Eyes: General: appearance normal, both eyes and all related structures Pupils: Equal, round and reactive pupils present EOM: EOMs intact bilaterally Neck: Neck: full ROM, no lymphadenopathy and no JVD Thyroid: thyroid normal Lymphatic: no lymphadenopathy noted Resp: Effort & Inspection: normal respiratory effort and able to speak in complete sentences Auscultation: clear to auscultation bilaterally and diminished lung sounds Cardio: Jugular venous distension: no JVD Rate: regular rate Rhythm: regular rhythm Heart sounds: S1 normal heart sound present and S2 normal heart sound present GI: Inspection: Pannus present and obesity : General: Yes deferred Skin: Rashes: no rashes Wounds: no wounds Neuro: General: patient oriented x3, CN's II-XI intact bilaterally and Unable to assess gait Cranial nerves:
[2022-04-16 08:54] LABS: Hematocrit 36.3 % (42.0-52.0); Hemoglobin 12.2 g/dL (14.0-18.0); Mean Corpuscular HGB Conc 33.6 g/dl (32-36); Mean Corpuscular Hemoglobin 28.6 pg (26-34); Mean Corpuscular Volume 85.2 fl (80-100); Mean Platelet Volume 9.9 fl (7.4-10.4); Platelet Count Result 262 k/mm3 (150-375); Red Blood Count 4.26 M/mm3 (4.6-6.20); White Blood Count 10.3 K/mm3 (4.5-10.0)
[2022-04-16] MEDS: SODIUM CHLORIDE 0.45% 1,000 ML 50 ML IV CONT (09:24)
[2022-04-16 09:40] LABS: CRP 31.1 mg/dL (<1.0)
[2022-04-16] MEDS: ENOXAPARIN 40 MG/0.4 ML SYRINGE SUB-Q (09:43)
[2022-04-16 09:59] LABS: Alanine Aminotransferase 25 U/L (6-50); Albumin Level 3.5 g/dL (3.5-5.1); Alkaline Phosphatase 75 U/L (38-126); Anion Gap 9 mmol/L (8-16); Aspartate Amino Transferase 39 U/L (17-59); Bilirubin,Total 0.6 mg/dL (0.2-1.3); Blood Urea Nitrogen 56 mg/dL (9-20); Calcium 8.4 mg/dL (8.4-10.2); Carbon Dioxide 23 mmol/L (22-30); Chloride 98 mmol/L (98-107); Estimated CRCL calculation 64 ml/min; Estimated Glomerular Filt Rate 41; Glucose 256 mg/dL (65-110); Sodium 130 mmol/L (137-145)
[2022-04-16 10:45] LABS: Alveolar/Arterial O2 Gradient 599.3 mmHg; Base Excess ABG -3.6 mEq/l (+/-2.0); Fractional Inspired Oxygen 100 %; HCO3 ABG 20.6 mEq/l (22.0-26.0); Oxygen Content ABG 18.4 %vol (16.0-22.0); Oxygen Saturation ABG 95.7 % (95.0-100.0); Oxyhemoglobin 94.7 % THb (90.0-100.0); PCO2 ABG 34.9 mmHg (35.0-45.0); PO2 ABG 78.8 mmHg (80.0-100.0); PO2 FiO2 Ratio Arterial Blood 0.79 %; Total Hemoglobin 13.8 g/dL (12.0-18.0); pH ABG 7.389 (7.350-7.450)
[2022-04-16 10:46] LABS: Modified Allen's Test Pass; Non-Invasive Expiratory Pressure 13 CMH2O; Non-Invasive Vent Rate 20 /MIN; Site Drawn RIGHT RADIAL
[2022-04-16 10:47] LABS: Device NON-INVASIVE VENT
--- NOTE | 2022-04-16 13:54 | WPDCNINT ---
Assessment and Plan Assessment and plan (1) Respiratory failure with hypoxia: Code(s): J96.91 - Respiratory failure, unspecified with hypoxia Status: Acute Assessment and Plan: Patient presented with increasing shortness of breath, hypoxia at home, initially was placed on nasal cannula, oxygen requirements have increased during the course of his stay in the intermediate Unit, currently on 100% and on AVAPS -being followed by pulmonology, -high pressure kettle operator discuss the case with me, I requested increasing his antibiotic coverage, obtain ABG and chest x-ray this morning. -I evaluated the patient in the intermediate Unit, currently not any distress but discussed with him regarding either early intubation and moving to the ICU or keep him on the AVAPS and moving to the ICU for closer monitoring. He opted to be on the AVAPS and moved to the ICU for closer monitoring. -he is agreeable to intubation if 30 L eyes -continue bronchodilators, will increase albuterol to 5 mg nebs (2) Pneumonia due to 2019 novel coronavirus: Code(s): U07.1 - COVID-19; J12.82 - Pneumonia due to coronavirus disease 2019 Status: Acute Assessment and Plan: Patient was tested for COVID-19 on 04/09/2022 at home and 04/14/2022 in the ER -patient was started on remdesivir and dexamethasone -04/15/2022 CRP was 37.1, received a dose of tocilizumab per high pressure kettle operator -patient has been started on azithromycin, cefepime and vancomycin -continue cough medications -continue droplet, airborne and contact isolation/precautions (3) Diastolic dysfunction: Code(s): I51.89 - Other ill-defined heart diseases Status: Acute Assessment and Plan: Echocardiogram 03/16/2022 -normal global LV systolic function with EF of 65%, grade 1 diastolic dysfunction, mild enlargement of the left atrium, normal appearance of mitral valve, aortic gas appear mildly sclerotic -continue aspirin -continue to monitor (4) HLD (hyperlipidemia): Code(s): E78.5 - Hyperlipidemia, unspecified Status: Acute Assessment and Plan: Continue atorvastatin (5) Hypertensive heart disease with heart failure: Code(s): I11.0 - Hypertensive heart disease with heart failure Status: Acute Assessment and Plan: Continue amlodipine, -losartan and spironolactone have been on hold for acute kidney injury (6) Acute kidney injury: Code(s): N17.9 - Acute kidney failure, unspecified Status: Acute Assessment and Plan: Acute kidney injury with creatinine 1.90 on admission (baseline creatinine seems to be 1.3 to 1.4) -creatinine trending down with adequate urine output -continue to monitor renal function electrolytes and urine output (7) Diabetes: Code(s): E11.9 - Type 2 diabetes mellitus without complications Status: Acute Assessment and Plan: Hyperglycemia, add Accu-Cheks and sliding scale insulin -check hemoglobin A1c Plan DVT prophylaxis: Lovenox SQ Stress ulcer prophylaxis: Nutrition: Diabetic diet Discussed with patient at length regarding intubation, he is agreeable to intubation if the need arises, but states currently he is comfortable on the AVAPS setting. Code Status: Full code Critical Care Time Spent: 52 minute Due to a high probability of clinically significant, life threatening deterioration, the patient required my highest level of preparedness to intervene emergently and I personally spent this critical care time directly and personally managing the patient. This critical care time included obtaining a history; examining the patient; pulse oximetry; ordering and review of studies; arranging urgent treatment with development of a management plan; evaluation of patient's response to treatment; frequent reassessment; and discussions with other providers. It was exclusive of separately billable procedures and treating other patients and teaching time. Please see Assessment and Plan section and the
[2022-04-16] MEDS: INSULIN ASPART (*BKC) 100 UNITS/ML SUB-Q (16:42)
[2022-04-16 16:46] LABS: Glucose Point of Care 346 mg/dl (65-105)
[2022-04-16] MEDS: ALBUTEROL SULFATE NEB 2.5 MG/3 ML INH 5 MG INHALATION ×2 (19:44→23:24)
[2022-04-16] MEDS: REMDESIVIR 100 MG/NS 250 ML 100 MG/250 ML BAG 250 MG IVPB (22:38)
[2022-04-16 23:49] LABS: Glucose Point of Care 337 mg/dl (65-105)
[2022-04-17] VITALS (27 sets, daily range): BP systolic 122–171; BP diastolic 71–83; PULSE 61–74; RESP 20–37; TEMP 36.6–36.9; O2SAT 88–96
[2022-04-17] MEDS: INSULIN ASPART (*BKC) 100 UNITS/ML SUB-Q ×4 (00:04→20:40)
[2022-04-17] MEDS: ONDANSETRON INJ 4 MG/2 ML VIAL IV PUSH ×2 (01:48→06:25)
[2022-04-17] MEDS: PANTOPRAZOLE SODIUM IV 40 MG VIAL IV PUSH ×2 (01:48→08:11)
--- NOTE | 2022-04-17 02:48 | PC.NURSE ---
Addendum entered by Henny Monet RN 04/17/22 02:53: A new pulse ox was placed on patients finger. Current oxygen saturation at 0253 is 90% Original Note: 04/17/22, 248: Patient had two episodes of desaturations as low as 78-79%. This nurse (Henny Monet, RN) went into patients room to check on him and he stated that he was doing fine. I informed patient that his oxygen saturation went down to 78-79%. I asked patient if he wanted to be intubated and he stated that he didn't want to and that he spoked to the physicians early today about not wanting to be intubated.
[2022-04-17 03:41] LABS: Basophils Absolute Auto 0.1 K/mm3 (0.0-0.1); Basophils Percent Auto 0.9 % (0.2-1.2); Eosinophils Absolute Auto 0.1 K/mm3 (0-0.3); Eosinophils Percent Auto 0.5 % (0-4.4); Hematocrit 39.1 % (42.0-52.0); Hemoglobin 13.1 g/dL (14.0-18.0); Immature Granulocyte Absolute 1.24 K/mm3 (0.00-0.031); Immature Granulocyte Percent A 9.6 % (0-0.5); Lymphocytes Absolute Auto 0.86 K/mm3 (0.9-3.2); Lymphocytes Percent Auto 6.7 % (18.3-44.2); Mean Corpuscular HGB Conc 33.5 g/dl (32-36); Mean Corpuscular Hemoglobin 28.7 pg (26-34); Mean Corpuscular Volume 85.6 fl (80-100); Mean Platelet Volume 9.4 fl (7.4-10.4); Monocytes Absolute Auto 0.7 K/mm3 (0.1-0.6); Monocytes Percent Auto 5.4 % (2.6-8.5); Neutrophils Absolute Auto 9.9 K/mm3 (1.3-6.7); Neutrophils Percent Auto 76.9 % (45.5-73.1); Platelet Count Result 339 k/mm3 (150-375); Red Blood Count 4.57 M/mm3 (4.6-6.20); Red Cell Distribution Width 14.1 % (11.5-14.5); White Blood Count 12.9 K/mm3 (4.5-10.0)
[2022-04-17 03:55] LABS: Alanine Aminotransferase 28 U/L (6-50); Albumin Level 3.7 g/dL (3.5-5.1); Alkaline Phosphatase 94 U/L (38-126); Anion Gap 8 mmol/L (8-16); Aspartate Amino Transferase 46 U/L (17-59); Bilirubin,Total 0.7 mg/dL (0.2-1.3); Blood Urea Nitrogen 48 mg/dL (9-20); Calcium 8.5 mg/dL (8.4-10.2); Carbon Dioxide 25 mmol/L (22-30); Chloride 102 mmol/L (98-107); Estimated CRCL calculation 83 ml/min; Estimated Glomerular Filt Rate 56; Glucose 308 mg/dL (65-110); Lactic Acid Reflex 1.3 mmol/L (0.7-2.0); Magnesium 2.7 mg/dL (1.6-2.3); Phosphorus 4.9 mg/dL (2.5-4.5); Potassium 4.2 mmol/L (3.4-5.0); Sodium 135 mmol/L (137-145)
[2022-04-17] MEDS: IPRATROPIUM BR 0.02% INH SOLN 0.5 MG/2.5 ML VIAL INHALATION ×6 (03:55→23:18)
[2022-04-17] MEDS: ALBUTEROL SULFATE NEB 2.5 MG/3 ML INH 5 MG INHALATION ×2 (03:55→08:35)
[2022-04-17 03:56] LABS: INR 1.4; Prothrombin Time 16.2 Seconds (11.1-14.7)
[2022-04-17 05:03] LABS: Hemoglobin A1C 8.2 % (<5.7)
[2022-04-17 05:14] LABS: Alveolar/Arterial O2 Gradient 599.7 mmHg; Base Excess ABG -1.5 mEq/l (+/-2.0); Fractional Inspired Oxygen 100 %; HCO3 ABG 23.9 mEq/l (22.0-26.0); Oxygen Saturation ABG 93.8 % (95.0-100.0); Oxyhemoglobin 92.3 % THb (90.0-100.0); PCO2 ABG 42.5 mmHg (35.0-45.0); PO2 ABG 70.8 mmHg (80.0-100.0); PO2 FiO2 Ratio Arterial Blood 0.71 %; Total Hemoglobin 18.5 g/dL (12.0-18.0); pH ABG 7.367 (7.350-7.450)
[2022-04-17 05:15] LABS: Arterial Blood Gas Ventilator rate 20 /MIN; Device VENTILATOR; Modified Allen's Test Unable to perform; Site Drawn RIGHT RADIAL
[2022-04-17 05:16] LABS: Arterial Blood Gas PEEP 13 cmH2O; Arterial Blood Gas Tidal Volume 650 ml
[2022-04-17] MEDS: SODIUM CHLORIDE 0.45% 1,000 ML 50 ML IV CONT (06:09)
[2022-04-17 06:23] LABS: Glucose Point of Care 318 mg/dl (65-105)
[2022-04-17] MEDS: ENOXAPARIN 40 MG/0.4 ML SYRINGE SUB-Q ×2 (08:10→20:33)
[2022-04-17] MEDS: LIDOCAINE HCL 1% PF INJ 5 ML VIAL INFILTRATE (10:15)
--- NOTE | 2022-04-17 11:47 | WPDINTPN ---
Progress Note: A&P Assessment and Plan (1) Respiratory failure with hypoxia: Code(s): J96.91 - Respiratory failure, unspecified with hypoxia Status: Acute Assessment and Plan: Acute respiratory failure secondary to COVID 19 pneumonia Patient presented with increasing shortness of breath, hypoxia at home, initially was placed on nasal cannula, oxygen requirements have increased during the course of his stay in the intermediate Unit, currently on 100% and on AVAPS Patient continues to be hypoxic requiring 100% FiO2 and has been dependent on NIPPV for last 2 days. His oxygenation is adequate but right at the border. He also is not in any respiratory distress except mild tachypnea. I had extensive discussion with the patient and explained him that he has not made any significant improvement and has been dependent on AVAPS last 2 days. He will likely need intubation and mechanical ventilation which I offered him as an option. Patient states that he feels better today as compared to yesterday and does not want to be intubated unless it was absolutely accessory. He states that his son is worried that he if patient gets intubated and go on a ventilator than he will and is asking him not to go on a ventilator. I did explain him pros and cons of going on mechanical ventilation and did explain him that there is a chance that he will not come off mechanical ventilation if his lungs do not recover. He is apprehensive wants to continue with the NIPPV at this time. I explained him that if he remains NIPPV dependent, he may not improve due to lack of nutrition and inability to take medications. He verbalized understanding. He states that if he gets intubated he would like to continue for 2 weeks and if he is not coming off the ventilator after 2 weeks he would not want to continue mechanical ventilation further. He wants his brother instead of his son to make decisions on his behalf if he is unable to do so. Chest x-ray reviewed ABG reviewed continue bronchodilators, will increase albuterol to 5 mg nebs (2) Pneumonia due to 2019 novel coronavirus: Code(s): U07.1 - COVID-19; J12.82 - Pneumonia due to coronavirus disease 2019 Status: Acute Assessment and Plan: Patient did receive vaccination at the beginning of pandemic did not receive any booster dose since then Patient was tested for COVID-19 on 04/09/2022 at home and 04/14/2022 in the ER -patient was started on remdesivir and dexamethasone -04/15/2022 CRP was 37.1, received a dose of tocilizumab per proof coins inspector -patient has been started on azithromycin, cefepime and vancomycin -continue cough medications -continue droplet, airborne and contact isolation/precautions (3) Diastolic dysfunction: Code(s): I51.89 - Other ill-defined heart diseases Status: Acute Assessment and Plan: Echocardiogram 03/16/2022 -normal global LV systolic function with EF of 65%, grade 1 diastolic dysfunction, mild enlargement of the left atrium, normal appearance of mitral valve, aortic gas appear mildly sclerotic -his BNP was normal -continue aspirin -continue to monitor -hold further IV fluids (4) HLD (hyperlipidemia): Code(s): E78.5 - Hyperlipidemia, unspecified Status: Acute Assessment and Plan: Continue atorvastatin (5) Hypertensive heart disease with heart failure: Code(s): I11.0 - Hypertensive heart disease with heart failure Status: Acute Assessment and Plan: Continue amlodipine, -losartan and spironolactone have been on hold for acute kidney injury (6) Acute kidney injury: Code(s): N17.9 - Acute kidney failure, unspecified Status: Acute Assessment and Plan: Acute kidney injury with creatinine 1.90 on admission (baseline creatinine seems to be 1.3 to 1.4) Creatinine improved to 1.3 and urine output is adequate On gentle hydration. Hold further IV fluids Continue to monitor renal function electrolytes a
[2022-04-17] MEDS: INSULIN GLARGINE (*BKC) 100 UNITS/ML 15 UNITS SUB-Q (11:48)
[2022-04-17 12:18] LABS: Glucose Point of Care 329 mg/dl (65-105)
--- NOTE | 2022-04-17 13:28 | PM.PNPUL ---
Progress Note: A&P Assessment and Plan (1) Respiratory failure with hypoxia: Code(s): J96.91 - Respiratory failure, unspecified with hypoxia Status: Acute Assessment and Plan: a 61-year-old man with a morbid obesity, and respiratory failure related to COVID 19 pneumonia. Patient has patchy infiltrates bilaterally on last chest CT. He is currently on 100% FiO2 AVAPS with a relatively high EPAP 14 cm H2O while being ventilated noninvasively in the left lateral decubitus position. He has been receiving treatment with remdesivir and dexamethasone. Also received tocilizumab. Patient wanted to continue with noninvasive ventilatory support at this point but willing to get intubated and placed on mechanical ventilation if respiratory status worsens. I would try to ventilate patient in the upright position given his morbid obesity and the likelihood of increased basal atelectasis in the left lateral position. I would increase Lovenox to b.i.d. continue with current antibiotic regimen for possible bacterial coinfection. (2) Pneumonia due to 2019 novel coronavirus: Code(s): U07.1 - COVID-19; J12.82 - Pneumonia due to coronavirus disease 2019 Status: Acute (3) Obesity: Code(s): E66.9 - Obesity, unspecified Status: Acute (4) SHANNAN (obstructive sleep apnea): Code(s): G47.33 - Obstructive sleep apnea (adult) (pediatric) Status: Acute Subjective Date/time seen: 04/17/22 13:28 61-year-old man with morbid obesity history of obstructive sleep apnea on no treatment presented with 5-6 day history of a upper respiratory system symptoms and progressively increasing shortness of breath. The patient was hospitalized 2 days ago with COVID-19 pneumonia. Respiratory status worsened and the patient was transferred to the intensive care unit where he is currently on AVAPS support. He has been ventilated in the left lateral decubitus position. patient is fully alert. He stated that shortness of breath has been unchanged over the last 20 hours. He has been on treatment with remdesivir dexamethasone and broad-spectrum antibiotics for possible coinfection. He also received tocilizumab. Review of Systems Review of Systems: All systems reviewed & are unremarkable except as noted in HPI and below Exam Narrative: GENERAL APPEARANCE: Well developed, well nourished, alert and cooperative, and appears to be in moderate distress While on AVAPS support SKIN: Inspection of the skin reveals no rashes, ulcerations or petechiae. HEENT: Sclerae anicteric and conjunctivae pink and moist. Extraocular movements were intact and pupils were equal, round. LUNGS: Auscultation of the lungs revealed crackles at bases posteriorly worse on left, no wheezing CARDIAC: distant heart sounds regular rhythm. ABDOMEN: obese, Soft and nontender with normal bowel sounds. EXTREMITIES: No cyanosis, clubbing or edema. NEUROLOGIC: Alert and oriented x 3. Normal affect. Objective Data Vital Signs Vital Signs: Vital Signs - 24 hr 04/16/22 14:10 04/16/22 14:53 04/16/22 14:50 Temperature Pulse Rate 69 69 Respiratory Rate 28 H 26 H Blood Pressure 149/76 H Pulse Oximetry 90 88 L Oxygen Delivery BiPAP Fraction of Inspired Oxygen 04/16/22 16:00 04/16/22 16:00 04/16/22 17:23 Temperature 36.9 C Pulse Rate 68 Respiratory Rate 30 H 29 H Blood Pressure 121/72 Pulse Oximetry 91 90 89 L Oxygen Delivery BiPAP BiPAP Fraction of Inspired Oxygen 100 04/16/22 18:00 04/16/22 16:00 04/16/22 18:00 Temperature Pulse Rate 66 68 66 Respiratory Rate 29 H Blood Pressure 129/65 Pulse Oximetry 89 L Oxygen Delivery Fraction of Inspired Oxygen 04/16/22 19:44 04/16/22 19:47 04/16/22 20:00 Temperature 36.6 C Pulse Rate 65 65 66 Respiratory Rate 30 H 30 H 31 H Blood Pressure 129/88 Pulse Oximetry 95 93 Oxygen Delivery BiPAP Fraction of Inspired Oxygen 04/16/22 20:00
[2022-04-17] MEDS: ALBUTEROL SULFATE NEB 2.5 MG/3 ML INH INHALATION ×3 (13:34→23:17)
[2022-04-17] MEDS: CENTRAL LINE FLUSH 10 ML IV PUSH ×2 (14:26→21:46)
[2022-04-17 16:10] LABS: Glucose Point of Care 301 mg/dl (65-105)
[2022-04-17 19:49] LABS: Vancomycin Trough 17.2 ug/mL (10.0-20.0)
[2022-04-17 20:37] LABS: Glucose Point of Care 277 mg/dl (65-105)
[2022-04-17] MEDS: REMDESIVIR 100 MG/NS 250 ML 100 MG/250 ML BAG 250 MG IVPB (21:46)
[2022-04-18] VITALS (28 sets, daily range): BP systolic 116–171; BP diastolic 62–100; PULSE 56–80; RESP 20–37; TEMP 36.6–37.2; O2SAT 88–96; BMI 46.1
[2022-04-18 01:03] LABS: Glucose Point of Care 270 mg/dl (65-105)
[2022-04-18] MEDS: INSULIN ASPART (*BKC) 100 UNITS/ML SUB-Q ×5 (01:09→21:13)
[2022-04-18 03:40] LABS: Hematocrit 40.5 % (42.0-52.0); Hemoglobin 13.2 g/dL (14.0-18.0); Mean Corpuscular HGB Conc 32.6 g/dl (32-36); Mean Corpuscular Hemoglobin 28.6 pg (26-34); Mean Corpuscular Volume 87.7 fl (80-100); Platelet Count Result 301 k/mm3 (150-375); Red Blood Count 4.62 M/mm3 (4.6-6.20); Red Cell Distribution Width 14.2 % (11.5-14.5); White Blood Count 12.9 K/mm3 (4.5-10.0)
[2022-04-18 03:51] LABS: INR 1.4; Prothrombin Time 16.5 Seconds (11.1-14.7)
[2022-04-18 03:53] LABS: Alanine Aminotransferase 31 U/L (6-50); Estimated CRCL calculation 77 ml/min; Estimated Glomerular Filt Rate 51; Magnesium 2.5 mg/dL (1.6-2.3)
[2022-04-18] MEDS: ALBUTEROL SULFATE NEB 2.5 MG/3 ML INH INHALATION ×6 (04:15→23:48)
[2022-04-18] MEDS: IPRATROPIUM BR 0.02% INH SOLN 0.5 MG/2.5 ML VIAL INHALATION ×6 (04:15→23:49)
[2022-04-18 04:46] LABS: Glucose Point of Care 259 mg/dl (65-105)
[2022-04-18] MEDS: CENTRAL LINE FLUSH 10 ML IV PUSH ×2 (04:48→20:44)
[2022-04-18 04:55] LABS: Alveolar/Arterial O2 Gradient 612.4 mmHg; Base Excess ABG -0.4 mEq/l (+/-2.0); Carboxyhemoglobin 0.3 % THb (0-2.0); Fractional Inspired Oxygen 100 %; HCO3 ABG 25.2 mEq/l (22.0-26.0); Methemoglobin ABG 0.4 %THb (0-1.5); Oxygen Content ABG 22.3 %vol (16.0-22.0); Oxygen Saturation ABG 88.7 % (95.0-100.0); PCO2 ABG 44.1 mmHg (35.0-45.0); PO2 ABG 56.5 mmHg (80.0-100.0); PO2 FiO2 Ratio Arterial Blood 0.56 %; Total Hemoglobin 18.2 g/dL (12.0-18.0); pH ABG 7.374 (7.350-7.450)
[2022-04-18 04:58] LABS: Device BIPAP; Modified Allen's Test Pass; Oxyhemoglobin 87.3 % THb (90.0-100.0); Site Drawn RIGHT RADIAL
[2022-04-18] MEDS: hydrALAZINE HCL 20 MG/ML VIAL 10 MG IV PUSH (06:19)
[2022-04-18 08:08] LABS: Glucose Point of Care 161 mg/dl (65-105)
[2022-04-18] MEDS: ENOXAPARIN 40 MG/0.4 ML SYRINGE SUB-Q ×2 (09:36→20:50)
[2022-04-18] MEDS: ASPIRIN 81 MG ENTERIC TABLET PO (09:36)
[2022-04-18] MEDS: amLODIPine BESYLATE 5 MG TABLET 10 MG PO (09:36)
[2022-04-18] MEDS: EZETIMIBE 10 MG TABLET PO (09:36)
[2022-04-18] MEDS: PANTOPRAZOLE SODIUM IV 40 MG VIAL IV PUSH (09:37)
[2022-04-18] MEDS: minoxidiL 2.5 MG TABLET PO (09:37)
[2022-04-18] MEDS: INSULIN GLARGINE (*BKC) 100 UNITS/ML 15 UNITS SUB-Q (09:37)
--- NOTE | 2022-04-18 10:42 | WPDINTPN ---
Progress Note: A&P Assessment and Plan (1) Respiratory failure with hypoxia: Code(s): J96.91 - Respiratory failure, unspecified with hypoxia Status: Acute Assessment and Plan: Acute respiratory failure secondary to COVID 19 pneumonia Patient presented with increasing shortness of breath, hypoxia at home, initially was placed on nasal cannula, oxygen requirements increased during the course of his stay in the intermediate Unit and patient was initiated on NIPPV and is, currently on 100% and on AVAPS. Patient continues to be hypoxic requiring 100% FiO2 and has been dependent on NIPPV for last few days. He is mildly tachypneic but not in any distress. No use accessory muscles and he is able to speak full sentences. His oxygenation is adequate but right at the border. He also is not in any respiratory distress except mild tachypnea. I again had long and extensive discussion with the patient and explained him his current status of respiratory failure, no significant improvement and his dependence on NIPPV. I discussed option of intubation and mechanical ventilation and recommended at this point he is a candidate for the patient mechanical ventilation. Patient is strongly opposed to intubation and mechanical ventilation at this time. He feels that his breathing is better and like to rough it out with BiPAP and see if he gets better. He he feels that if he goes on him ventilator he will never come off of it and will on the ventilator. He told me that his son told him not to go on mechanical ventilation as he also is afraid that patient will never come off the ventilator and will from his COVID-19 pneumonia. I explained him that he does have a high risk of mortality and significant chance of him not being able to wean from mechanical ventilation. He verbalized understanding of the situation. Patient continues to maintain that he will be okay with intubation and mechanical ventilation if he is in respiratory distress or unable to keep his oxygenation at acceptable level with NIPPV. He told me that he would want to be on a ventilator for 2 weeks and if he is not improving and coming off the ventilator by then he would not want to continue in that state. He wants his brother Dougie instead of his son to make decisions on his behalf if he is unable to do so. Chest x-ray reviewed ABG reviewed Continue bronchodilators, will increase albuterol to 5 mg nebs (2) Pneumonia due to 2019 novel coronavirus: Code(s): U07.1 - COVID-19; J12.82 - Pneumonia due to coronavirus disease 2019 Status: Acute Assessment and Plan: Patient did receive vaccination at the beginning of pandemic did not receive any booster dose since then Patient was tested for COVID-19 on 04/09/2022 at home and 04/14/2022 in the ER -patient was started on remdesivir and dexamethasone -04/15/2022 CRP was 37.1, received a dose of tocilizumab as per orders of decorating machine operator -patient has been started on azithromycin, cefepime and vancomycin. -cultures have been negative. I will discontinue vancomycin and continue cefepime and azithromycin for 5 days -continue cough medications -continue droplet, airborne and contact isolation/precautions (3) Diastolic dysfunction: Code(s): I51.89 - Other ill-defined heart diseases Status: Acute Assessment and Plan: Echocardiogram 03/16/2022 -normal global LV systolic function with EF of 65%, grade 1 diastolic dysfunction, mild enlargement of the left atrium, normal appearance of mitral valve, aortic gas appear mildly sclerotic -his BNP was normal -continue aspirin -continue to monitor -cautious hydration (4) HLD (hyperlipidemia): Code(s): E78.5 - Hyperlipidemia, unspecified Status: Acute Assessment and Plan: Continue atorvastatin (5) Hypertensive heart disease with heart failure: Code(s): I11.0 - Hypertensive heart disease with heart failure Status: Acute Assessmen
[2022-04-18 10:45] LABS: Anion Gap 5 mmol/L (8-16); Blood Urea Nitrogen 34 mg/dL (9-20); Calcium 8.1 mg/dL (8.4-10.2); Carbon Dioxide 26 mmol/L (22-30); Chloride 103 mmol/L (98-107); Estimated CRCL calculation 97 ml/min; Estimated Glomerular Filt Rate > 60; Glucose 194 mg/dL (65-110); Potassium 4.4 mmol/L (3.4-5.0); Sodium 134 mmol/L (137-145)
--- NOTE | 2022-04-18 11:27 | PM.PNPUL ---
Progress Note: A&P Assessment and Plan (1) Respiratory failure with hypoxia: Code(s): J96.91 - Respiratory failure, unspecified with hypoxia Status: Acute Assessment and Plan: a 61-year-old man with a morbid obesity, and respiratory failure related to COVID 19 pneumonia. Patient has patchy infiltrates bilaterally on last chest CT. He is currently on 100% FiO2 AVAPS with a relatively high EPAP 14 cm H2O while being ventilated noninvasively in the semirecumbent position. He has been receiving treatment with remdesivir and dexamethasone. confirmed with pharmacy about Rx with tocilizumab. He is fully alert and oriented. patient still wants to continue with noninvasive ventilatory support rather than intubation and mechanical ventilation. Plan: continue with current ventilatory support via AVAPS, monitor respiratory status for possible worsening. Agree with D/C vancomycin. (2) Pneumonia due to 2019 novel coronavirus: Code(s): U07.1 - COVID-19; J12.82 - Pneumonia due to coronavirus disease 2019 Status: Acute (3) Obesity: Code(s): E66.9 - Obesity, unspecified Status: Acute (4) SHANNAN (obstructive sleep apnea): Code(s): G47.33 - Obstructive sleep apnea (adult) (pediatric) Status: Acute Subjective Date/time seen: 04/18/22 11:27 Respiratory status unchanged over the last 24 hours. The patient remains on AVAPS and 100% FiO2. Ventilated in the seated position. Afebrile. Mild coughing. Fully awake again refusing intubation. Review of Systems Review of Systems: All systems reviewed & are unremarkable except as noted in HPI and below Exam Narrative: GENERAL APPEARANCE: Well developed, well nourished, alert and cooperative, and appears to be in moderate distress While on AVAPS support SKIN: Inspection of the skin reveals no rashes, ulcerations or petechiae. HEENT: Sclerae anicteric and conjunctivae pink and moist. Extraocular movements were intact and pupils were equal, round. LUNGS: Auscultation of the lungs revealed crackles at bases posteriorly worse on left, no wheezing CARDIAC: distant heart sounds regular rhythm. ABDOMEN: obese, Soft and nontender with normal bowel sounds. EXTREMITIES: No cyanosis, clubbing or edema. NEUROLOGIC: Alert and oriented x 3. Normal affect. Objective Data Vital Signs Vital Signs: Vital Signs - 24 hr 04/17/22 12:00 04/17/22 13:35 04/17/22 13:39 Temperature 36.6 C Pulse Rate 64 61 61 Respiratory Rate 21 H 29 H 29 H Blood Pressure 167/77 H Pulse Oximetry 93 90 Oxygen Delivery BiPAP Fraction of Inspired Oxygen 04/17/22 13:57 04/17/22 14:00 04/17/22 16:00 Temperature 36.7 C Pulse Rate 69 67 69 Respiratory Rate 21 H 27 H 30 H Blood Pressure 171/72 H 145/71 H Pulse Oximetry 94 90 Oxygen Delivery Fraction of Inspired Oxygen 04/17/22 16:18 04/17/22 16:19 04/17/22 16:24 Temperature Pulse Rate 67 66 64 Respiratory Rate 20 28 H 20 Blood Pressure Pulse Oximetry 94 Oxygen Delivery BiPAP Fraction of Inspired Oxygen 04/17/22 12:00 04/17/22 14:00 04/17/22 16:00 Temperature Pulse Rate 69 67 65 Respiratory Rate Blood Pressure Pulse Oximetry Oxygen Delivery Fraction of Inspired Oxygen 04/17/22 12:00 04/17/22 16:00 04/17/22 18:00 Temperature Pulse Rate 71 Respiratory Rate 30 H Blood Pressure 165/75 H Pulse Oximetry 91 90 90 Oxygen Delivery BiPAP BiPAP Fraction of Inspired Oxygen 100 100 04/17/22 18:00 04/17/22 20:07 04/17/22 20:07 Temperature Pulse Rate 64 64 64 Respiratory Rate 32 H 32 H Blood Pressure Pulse Oximetry 94 94 Oxygen Delivery BiPAP Fraction of Inspired Oxygen 04/17/22 20:07 04/17/22 20:44 04/17/22 20:00 Temperature Pulse Rate 64 67 67 Respiratory Rate 32 H 30 H Blood Pressure Pulse Oximetry Oxygen Delivery Fraction of Inspired Oxygen 04/17/22 20:00 04/17/22 20:00 04/17/22 22:00 Tem
[2022-04-18 12:12] LABS: Glucose Point of Care 291 mg/dl (65-105)
[2022-04-18] MEDS: SODIUM CHLORIDE 0.9% IV 1,000 ML 50 ML IV CONT (12:23)
[2022-04-18 17:15] LABS: Glucose Point of Care 232 mg/dl (65-105)
--- NOTE | 2022-04-18 20:26 | PC.NURSE ---
Spoke with family they are requesting patient be transferred to [place]. I told the family we would let Dr. Duckworth know in am. I explained the transfer process to the family and that it may be very hard to get them a bed due to high census in the [facility].
[2022-04-18] MEDS: REMDESIVIR 100 MG/NS 250 ML 100 MG/250 ML BAG 250 MG IVPB (20:42)
[2022-04-18 20:53] LABS: Glucose Point of Care 203 mg/dl (65-105)
[2022-04-19] VITALS (30 sets, daily range): BP systolic 140–188; BP diastolic 78–111; PULSE 66–112; RESP 20–37; TEMP 36.1–36.7; O2SAT 72–96
[2022-04-19 01:11] LABS: Glucose Point of Care 174 mg/dl (65-105)
[2022-04-19] MEDS: BENZONATATE 100 MG CAPSULE PO (01:11)
[2022-04-19] MEDS: ALBUTEROL SULFATE NEB 2.5 MG/3 ML INH INHALATION ×6 (04:02→23:35)
[2022-04-19] MEDS: IPRATROPIUM BR 0.02% INH SOLN 0.5 MG/2.5 ML VIAL INHALATION ×6 (04:02→23:35)
[2022-04-19] MEDS: hydrALAZINE HCL 20 MG/ML VIAL 10 MG IV PUSH ×3 (05:24→22:59)
[2022-04-19 05:30] LABS: Base Excess ABG -1.4 mEq/l (+/-2.0); Carboxyhemoglobin 0.7 % THb (0-2.0); Device OTHER DEVICE; Fractional Inspired Oxygen 100 %; HCO3 ABG 24.9 mEq/l (22.0-26.0); Methemoglobin ABG 0.3 %THb (0-1.5); Modified Allen's Test Unable to perform; Oxygen Content ABG 20.3 %vol (16.0-22.0); Oxygen Saturation ABG 93.6 % (95.0-100.0); Oxyhemoglobin 92.4 % THb (90.0-100.0); PCO2 ABG 47.5 mmHg (35.0-45.0); PO2 ABG 72.5 mmHg (80.0-100.0); PO2 FiO2 Ratio Arterial Blood 0.73 %; Reduced Hemoglobin 6.6 %THb (0-5.0); Site Drawn RIGHT RADIAL; Total Hemoglobin 15.6 g/dL (12.0-18.0); pH ABG 7.337 (7.350-7.450)
[2022-04-19] MEDS: SODIUM CHLORIDE 0.9% IV 1,000 ML 50 ML IV CONT (05:42)
[2022-04-19] MEDS: CENTRAL LINE FLUSH 10 ML IV PUSH ×3 (05:45→22:59)
[2022-04-19 05:49] LABS: Glucose Point of Care 190 mg/dl (65-105)
[2022-04-19 05:55] LABS: Hematocrit 41.3 % (42.0-52.0); Mean Corpuscular HGB Conc 31.5 g/dl (32-36); Mean Corpuscular Hemoglobin 28.2 pg (26-34); Mean Corpuscular Volume 89.6 fl (80-100); Mean Platelet Volume 9.3 fl (7.4-10.4); Platelet Count Result 205 k/mm3 (150-375); Red Blood Count 4.61 M/mm3 (4.6-6.20); Red Cell Distribution Width 14.2 % (11.5-14.5); White Blood Count 18.3 K/mm3 (4.5-10.0)
[2022-04-19 06:04] LABS: Alanine Aminotransferase 43 U/L (6-50); Albumin Level 3.1 g/dL (3.5-5.1); Alkaline Phosphatase 99 U/L (38-126); Anion Gap 3 mmol/L (8-16); Aspartate Amino Transferase 77 U/L (17-59); Bilirubin,Total 0.9 mg/dL (0.2-1.3); Blood Urea Nitrogen 28 mg/dL (9-20); Calcium 7.3 mg/dL (8.4-10.2); Carbon Dioxide 25 mmol/L (22-30); Chloride 106 mmol/L (98-107); Estimated CRCL calculation 118 ml/min; Estimated Glomerular Filt Rate > 60; Glucose 168 mg/dL (65-110); Magnesium 2.1 mg/dL (1.6-2.3); Sodium 134 mmol/L (137-145)
[2022-04-19] MEDS: EZETIMIBE 10 MG TABLET PO (10:05)
[2022-04-19] MEDS: ENOXAPARIN 40 MG/0.4 ML SYRINGE SUB-Q ×2 (10:05→20:10)
[2022-04-19] MEDS: PANTOPRAZOLE SODIUM IV 40 MG VIAL IV PUSH (10:06)
[2022-04-19] MEDS: amLODIPine BESYLATE 5 MG TABLET 10 MG PO (10:06)
[2022-04-19] MEDS: ASPIRIN 81 MG ENTERIC TABLET PO (10:06)
[2022-04-19] MEDS: minoxidiL 2.5 MG TABLET PO (10:06)
--- NOTE | 2022-04-19 10:14 | WPDINTPN ---
Progress Note: A&P Assessment and Plan (1) Respiratory failure with hypoxia: Code(s): J96.91 - Respiratory failure, unspecified with hypoxia Status: Acute Assessment and Plan: Acute respiratory failure secondary to COVID 19 pneumonia Patient presented with increasing shortness of breath, hypoxia at home, initially was placed on nasal cannula, oxygen requirements increased during the course of his stay in the intermediate Unit and patient was initiated on NIPPV and is, currently on 100% and on AVAPS. Patient continues to be hypoxic requiring 100% FiO2 and has been dependent on NIPPV for last few days. He is mildly tachypneic but not in any distress. No use accessory muscles and he is able to speak full sentences. His oxygenation is adequate but right at the border. He also is not in any respiratory distress except mild tachypnea. 04/19 I again had long and extensive discussion with the patient and explained him his current status of respiratory failure, no significant improvement and his dependence on NIPPV. I discussed option of intubation and mechanical ventilation and recommended at this point he is a candidate for the patient mechanical ventilation. Patient is strongly opposed to intubation and mechanical ventilation at this time. He feels that his breathing is better and like to rough it out with BiPAP and see if he gets better. He he feels that if he goes on him ventilator he will never come off of it and will on the ventilator. He told me that his son told him not to go on mechanical ventilation as he also is afraid that patient will never come off the ventilator and will from his COVID-19 pneumonia. I explained him that he does have a high risk of mortality and significant chance of him not being able to wean from mechanical ventilation. He verbalized understanding of the situation. Patient continues to maintain that he will be okay with intubation and mechanical ventilation if he is in respiratory distress or unable to keep his oxygenation at acceptable level with NIPPV. He told me that he would want to be on a ventilator for 2 weeks and if he is not improving and coming off the ventilator by then he would not want to continue in that state. 04/20 patient remains adamant this time and is refusing intubation and mechanical ventilation. I will try Airvo with a non-rebreather see if patient tolerates otherwise will go back on BiPAP He wants his brother Dougie instead of his son to make decisions on his behalf if he is unable to do so. Chest x-ray reviewed ABG reviewed Continue bronchodilators, will increase albuterol to 5 mg nebs (2) Pneumonia due to 2019 novel coronavirus: Code(s): U07.1 - COVID-19; J12.82 - Pneumonia due to coronavirus disease 2019 Status: Acute Assessment and Plan: Patient did receive vaccination at the beginning of pandemic did not receive any booster dose since then Patient was tested for COVID-19 on 04/09/2022 at home and 04/14/2022 in the ER -patient was started on remdesivir and dexamethasone. Continue both for 10 days -04/15/2022 CRP was 37.1, received a dose of tocilizumab as per orders of tube builder -patient has been started on azithromycin, cefepime and vancomycin. -cultures have been negative. I have discontinued vancomycin and continue cefepime and azithromycin for 5 days -continue cough medications -continue droplet, airborne and contact isolation/precautions (3) Diastolic dysfunction: Code(s): I51.89 - Other ill-defined heart diseases Status: Acute Assessment and Plan: Echocardiogram 03/16/2022 -normal global LV systolic function with EF of 65%, grade 1 diastolic dysfunction, mild enlargement of the left atrium, normal appearance of mitral valve, aortic gas appear mildly sclerotic -his BNP was normal -continue aspirin -continue to monitor -on cautious hydration (4) HLD (hyperlipidemia): Code(s): E78.5 - Hyperlipidemia, unspecified
[2022-04-19] MEDS: INSULIN ASPART (*BKC) 100 UNITS/ML SUB-Q ×4 (10:15→20:08)
[2022-04-19] MEDS: INSULIN GLARGINE (*BKC) 100 UNITS/ML 15 UNITS SUB-Q (10:16)
--- NOTE | 2022-04-19 10:26 | PCFNICU ---
ICU Rounding Note: Pt current nutrition is TPN. Last recorded weight is 158.6 kg. Bowel Motility:No BM reported Labs Reviewed: Glu 168, Na 134, BUN 28, Alb 3.1.Hgb 41.3,Hgb 13.0 Meds Noted:Remdesivir,Decadron,Novolog, Lantus, Lovenox, Protonix,Clinimix 5/15 at 40 ml/hr with 250 ml of 20% Lipids. Skin: WNL Additional Notes: Patient trying Airvo today. No oral intake has been reported x 5 days. Discussed nutritional status with [employer] today. Recommend TPN at 40ml/hr providing 1182 kcals and 48 gms protein. Meeting 49% kcal needs and 29% protein needs. Recommend goal rate of TPN at 80 ml/hr. Oral Intake will remain as DBCC with Glucerna shakes TID providing an additional 220 kcals and 10 gms protein. Will monitor in ICU rounds and reassessing every Sunday and Sunday.
[2022-04-19 10:33] LABS: Glucose Point of Care 223 mg/dl (65-105)
[2022-04-19 10:49] LABS: INR 1.5; Prothrombin Time 17.4 Seconds (11.1-14.7)
--- NOTE | 2022-04-19 10:58 | PM.PNPUL ---
Progress Note: A&P Assessment and Plan (1) Respiratory failure with hypoxia: Code(s): J96.91 - Respiratory failure, unspecified with hypoxia Status: Acute Assessment and Plan: a 61-year-old man with morbid obesity, and respiratory failure related to COVID 19 pneumonia. Patient has patchy infiltrates bilaterally on last chest CT. He is currently on 100% FiO2 AVAPS with a relatively high EPAP 13 cm H2O while being ventilated noninvasively in the semirecumbent position. He has been on treatment with remdesivir and dexamethasone. Also received tocilizumab. He is fully alert and oriented. patient still wants to continue with noninvasive ventilatory support rather than intubation and mechanical ventilation. Chest x-ray done today essentially unchanged, bilateral patchy infiltrates Plan: continue with current ventilatory support via AVAPS in the Semi recumbent position. Will increase EPAP to 15 cm and decrease FiO2 to 90%. Will consider titrating down to lower FiO2 if tolerated. monitor respiratory status for possible worsening. (2) Pneumonia due to 2019 novel coronavirus: Code(s): U07.1 - COVID-19; J12.82 - Pneumonia due to coronavirus disease 2019 Status: Acute (3) Obesity: Code(s): E66.9 - Obesity, unspecified Status: Acute (4) SHANNAN (obstructive sleep apnea): Code(s): G47.33 - Obstructive sleep apnea (adult) (pediatric) Status: Acute Subjective Date/time seen: 04/19/22 10:58 No significant change in respiratory status. The patient remains on a BiPAP support, AVAPS mode 13 cm H2O pressure 100% FiO2. Has been hemodynamically stable While ventilated in semi recumbent position. Has been off antibiotics; he has been considered for TPN. Afebrile has had some cough. Review of Systems Review of Systems: All systems reviewed & are unremarkable except as noted in HPI and below Exam Narrative: GENERAL APPEARANCE: Well developed, well nourished, alert and cooperative, and appears to be in moderate distress While on AVAPS support SKIN: Inspection of the skin reveals no rashes, ulcerations or petechiae. HEENT: Sclerae anicteric and conjunctivae pink and moist. Extraocular movements were intact and pupils were equal, round. LUNGS: Auscultation of the lungs revealed crackles at bases posteriorly worse on left, no wheezing CARDIAC: distant heart sounds regular rhythm. ABDOMEN: obese, Soft and nontender with normal bowel sounds. EXTREMITIES: No cyanosis, clubbing or edema. NEUROLOGIC: Alert and oriented x 3. Normal affect. Objective Data Vital Signs Vital Signs: Vital Signs - 24 hr 04/18/22 11:22 04/18/22 11:25 04/18/22 11:37 Temperature Pulse Rate 68 67 73 Respiratory Rate 32 H 22 H 20 Blood Pressure Pulse Oximetry 92 Oxygen Delivery BiPAP Oxygen Flow Rate Fraction of Inspired Oxygen 04/18/22 12:00 04/18/22 12:00 04/18/22 12:00 Temperature 36.6 C Pulse Rate 77 77 77 Respiratory Rate 33 H 33 H Blood Pressure 153/71 H Pulse Oximetry 91 91 Oxygen Delivery BiPAP Oxygen Flow Rate Fraction of Inspired Oxygen 100 04/18/22 14:00 04/18/22 14:00 04/18/22 14:35 Temperature Pulse Rate 73 68 73 Respiratory Rate 29 H 33 H Blood Pressure 149/71 H Pulse Oximetry 90 91 Oxygen Delivery BiPAP Oxygen Flow Rate Fraction of Inspired Oxygen 04/18/22 15:04 04/18/22 16:00 04/18/22 16:00 Temperature Pulse Rate 73 79 73 Respiratory Rate 20 20 Blood Pressure Pulse Oximetry 94 Oxygen Delivery BiPAP Oxygen Flow Rate Fraction of Inspired Oxygen 100 04/18/22 16:00 04/18/22 17:05 04/18/22 15:15 Temperature 36.7 C Pulse Rate 77 72 76 Respiratory Rate 27 H 31 H 20 Blood Pressure 151/80 H Pulse Oximetry 96 93 Oxygen Delivery BiPAP Oxygen Flow Rate Fraction of Inspired Oxygen 04/18/22 18:00 04/18/22 18:00 04/18/22 20:04 Temperature Pulse Rate 70 73 72 Respiratory Rate 2
[2022-04-19 11:11] LABS: Transferrin 154 mg/dL (206-381)
[2022-04-19] MEDS: FAT EMULSIONS IV 20% 250 ML 20.83 ML IVPB (13:59)
[2022-04-19] MEDS: AMINO ACIDS 5%/D15W/E-LYTES/CA 2,000 ML with MULTIVITAMINS-12 INJ VIAL 1 2.5 ML, MULTIV... 40 ML IV CONT (13:59)
[2022-04-19] MEDS: DEXTROMETHORPHAN POLISTIREX 60 MG/10 ML SYRINGE PO (15:55)
[2022-04-19] MEDS: LABETALOL HCL INJ 100 MG/20 ML VIAL 20 MG IV PUSH (16:59)
[2022-04-19 17:06] LABS: Glucose Point of Care 246 mg/dl (65-105)
[2022-04-19 17:06] LABS: Glucose Point of Care 271 mg/dl (65-105)
--- NOTE | 2022-04-19 18:16 | PM.IMPN ---
Progress Note: A&P Assessment and Plan (1) Pneumonia due to 2019 novel coronavirus: Code(s): U07.1 - COVID-19; J12.82 - Pneumonia due to coronavirus disease 2019 Status: Acute Assessment and Plan: patient started on remdesivir Rocephin and Zithromax for antibacterial coverage blood cultures in progress supportive care 04/19/2022 interval history Patient tested positive at home on 04/09/2022 his symptoms or worsening was brought emergency department for further evaluation, was started on remdesivir and dexamethasone empirically patient was started on azithromycin and ceftriaxone, patient was seen by pulmonology and place the patient on BiPAP, however on 03/17/2022 patient symptoms or worsening was seen by yacht builder and agreed if needed patient willing to be intubated, his symptoms were worsening again patient was seen by yacht builder and evaluated the patient, patient continue to refuse intubation, patient remains his baseline will continue to monitor. (2) Respiratory failure with hypoxia: Code(s): J96.91 - Respiratory failure, unspecified with hypoxia Status: Acute Assessment and Plan: continue supplemental oxygen by nasal cannula (3) GERD (gastroesophageal reflux disease): Code(s): K21.9 - Gastro-esophageal reflux disease without esophagitis Status: Acute Assessment and Plan: PPI (4) Diastolic dysfunction: Code(s): I51.89 - Other ill-defined heart diseases Status: Acute Assessment and Plan: continue to monitor (5) SHANNAN (obstructive sleep apnea): Code(s): G47.33 - Obstructive sleep apnea (adult) (pediatric) Status: Acute Assessment and Plan: CPAP at nighttime Subjective Date/time seen: 04/19/22 18:16 sob HPI-Narrative: ?This is a 61-year-old male with past medical history significant for morbid obesity, type 2 diabetes mellitus, hypertension, GERD. PATIENT PRESENTED TO THE EMERGENCY ROOM DUE TO WORSENING SHORTNESS OF BREATH, LOSS OF SENSE OF TASTE AND SMELL, COUGH, NONPRODUCTIVE, body aches and pains, fever fevers, chills, rigors.? Patient tested positive for COVID with a home kit test.? Preliminary workup here was significant for chest x-ray was reported as:1. Patchy airspace opacities in bilateral mid and lower lung zones which could represent pulmonary edema or pneumonia. 2. Cardiomegaly. 04/19/2022 interval history Patient tested positive at home on 04/09/2022 his symptoms or worsening was brought emergency department for further evaluation, was started on remdesivir and dexamethasone empirically patient was started on azithromycin and ceftriaxone, patient was seen by pulmonology and place the patient on BiPAP, however on 03/17/2022 patient symptoms or worsening was seen by yacht builder and agreed if needed patient willing to be intubated, his symptoms were worsening again patient was seen by yacht builder and evaluated the patient, patient continue to refuse intubation, patient remains his baseline will continue to monitor. Review of Systems Review of Systems: ROS unobtainable: Yes unobtainable due to mental status Exam Narrative: morbidly obese Patient is comfortable, NAD HEENT: eyes are clear and none icteric LUNGS: slight labored breathing ABD: distended Lower extremities: no edema SKIN: nonjaundiced Neuro: grossly intact. Objective Data Vital Signs Vital Signs: Vital Signs - 24 hr 04/18/22 20:04 04/18/22 20:04 04/18/22 20:00 Temperature 97.9 F Pulse Rate 72 72 80 Respiratory Rate 32 H 33 H 37 H Blood Pressure 171/85 H Pulse Oximetry 93 91 Oxygen Delivery BiPAP Oxygen Flow Rate Fraction of Inspired Oxygen 04/18/22 20:00 04/18/22 20:00 04/18/22 22:00 Temperature Pulse Rate 72 72 72 Respiratory Rate 33 H Blood Pressure Pulse Oximetry 93 Oxygen Delivery BiPAP Oxygen Flow Rate Fraction of Inspired Oxygen 100 04/18/22 22:00 04/18/22 23:49
[2022-04-19 20:23] LABS: Glucose Point of Care 291 mg/dl (65-105)
[2022-04-19] MEDS: REMDESIVIR 100 MG/NS 250 ML 100 MG/250 ML BAG 250 MG IVPB (21:39)
[2022-04-19] MEDS: ALTEPLASE 2 MG VIAL (CATHFLO) IV PUSH (23:09)
[2022-04-19] MEDS: WATER, STERILE FOR INJECTION 10 ML VIAL XX (23:10)
[2022-04-19] MEDS: ONDANSETRON INJ 4 MG/2 ML VIAL IV PUSH (23:42)
[2022-04-20] VITALS (60 sets, daily range): BP systolic 94–171; BP diastolic 57–105; PULSE 1–109; RESP 26–38; TEMP 36.1–37.3; O2SAT 90–97
[2022-04-20] MEDS: INSULIN ASPART (*BKC) 100 UNITS/ML SUB-Q ×6 (00:05→20:46)
[2022-04-20 00:22] LABS: Glucose Point of Care 280 mg/dl (65-105)
[2022-04-20] MEDS: LABETALOL HCL INJ 100 MG/20 ML VIAL 20 MG IV PUSH ×2 (01:09→05:16)
--- NOTE | 2022-04-20 01:12 | PC.NURSE ---
TPN and lipids paused from [id number] for cathflo administration.
[2022-04-20] MEDS: IPRATROPIUM BR 0.02% INH SOLN 0.5 MG/2.5 ML VIAL INHALATION ×5 (04:30→21:16)
[2022-04-20] MEDS: ALBUTEROL SULFATE NEB 2.5 MG/3 ML INH INHALATION ×5 (04:30→21:16)
[2022-04-20 05:04] LABS: Hematocrit 46.1 % (42.0-52.0); Hemoglobin 14.8 g/dL (14.0-18.0); Mean Corpuscular HGB Conc 32.1 g/dl (32-36); Mean Corpuscular Hemoglobin 28.2 pg (26-34); Mean Platelet Volume 9.4 fl (7.4-10.4); Platelet Count Result 154 k/mm3 (150-375); Red Blood Count 5.24 M/mm3 (4.6-6.20); Red Cell Distribution Width 14.5 % (11.5-14.5); White Blood Count 27.2 K/mm3 (4.5-10.0)
[2022-04-20 05:15] LABS: Alveolar/Arterial O2 Gradient 577.9 mmHg; Base Excess ABG -4.4 mEq/l (+/-2.0); Carboxyhemoglobin 0.3 % THb (0-2.0); Fractional Inspired Oxygen 100 %; HCO3 ABG 20.3 mEq/l (22.0-26.0); Methemoglobin ABG 0.4 %THb (0-1.5); Oxygen Content ABG 21.3 %vol (16.0-22.0); Oxygen Saturation ABG 97.3 % (95.0-100.0); PCO2 ABG 36.5 mmHg (35.0-45.0); PO2 ABG 98.6 mmHg (80.0-100.0); PO2 FiO2 Ratio Arterial Blood 0.99 %; Reduced Hemoglobin 3.3 %THb (0-5.0); Total Hemoglobin 15.7 g/dL (12.0-18.0); pH ABG 7.362 (7.350-7.450)
[2022-04-20 05:16] LABS: Device NON-INVASIVE VENT; Modified Allen's Test Pass; Non-Invasive Vent Rate 20 /MIN; Site Drawn RIGHT RADIAL
[2022-04-20 05:17] LABS: Non-Invasive Expiratory Pressure 15 CMH2O
[2022-04-20 05:44] LABS: INR 1.4; Prothrombin Time 16.9 Seconds (11.1-14.7)
[2022-04-20] MEDS: CENTRAL LINE FLUSH 10 ML IV PUSH ×3 (06:04→21:02)
[2022-04-20 06:58] LABS: Glucose Point of Care 286 mg/dl (65-105)
[2022-04-20 08:30] LABS: Glucose Point of Care 296 mg/dl (65-105)
[2022-04-20 08:39] LABS: Alanine Aminotransferase 65 U/L (6-50); Albumin Level 3.4 g/dL (3.5-5.1); Alkaline Phosphatase 154 U/L (38-126); Anion Gap 6 mmol/L (8-16); Aspartate Amino Transferase 104 U/L (17-59); Bilirubin,Total 1.4 mg/dL (0.2-1.3); Blood Urea Nitrogen 42 mg/dL (9-20); Calcium 8.2 mg/dL (8.4-10.2); Carbon Dioxide 22 mmol/L (22-30); Chloride 104 mmol/L (98-107); Estimated CRCL calculation 98 ml/min; Estimated Glomerular Filt Rate > 60; Glucose 266 mg/dL (65-110); Magnesium 2.8 mg/dL (1.6-2.3); Phosphorus 4.6 mg/dL (2.5-4.5); Potassium 5.8 mmol/L (3.4-5.0); Sodium 132 mmol/L (137-145)
[2022-04-20 08:47] LABS: Triglycerides 329 mg/dL (<150)
[2022-04-20] MEDS: PANTOPRAZOLE SODIUM IV 40 MG VIAL IV PUSH (09:12)
[2022-04-20] MEDS: INSULIN GLARGINE (*BKC) 100 UNITS/ML 25 UNITS SUB-Q (09:13)
[2022-04-20] MEDS: FUROSEMIDE INJ 40 MG/4 ML VIAL IV PUSH (09:17)
--- NOTE | 2022-04-20 09:23 | PCRCNOTE ---
TRIALED PT. ON AIRVO 60LPM 90% FIO2 PLUS A 15LPM NON REBREATHER. PT. SUSTAINED SPO2 IN TO 70S. PLACED PT. BACK ON BIPAP AND SPO2 INCREASED TO 93%.
[2022-04-20] MEDS: CISATRACURIUM BESYLATE 20 MG/10 ML VIAL 23.8 MG IV PUSH (11:07)
[2022-04-20] MEDS: ETOMIDATE 20 MG/10 ML AMPUL IV PUSH (11:10)
[2022-04-20] MEDS: ROCURONIUM BROMIDE 50 MG/5 ML VIAL IV PUSH ×2 (11:11→11:20)
--- NOTE | 2022-04-20 11:12 | WPDINTPN ---
Progress Note: A&P Assessment and Plan (1) Respiratory failure with hypoxia: Code(s): J96.91 - Respiratory failure, unspecified with hypoxia Status: Acute Assessment and Plan: Acute respiratory failure secondary to COVID 19 pneumonia Patient presented with increasing shortness of breath, hypoxia at home, initially was placed on nasal cannula, oxygen requirements increased during the course of his stay in the intermediate Unit and patient was initiated on NIPPV and is, currently on 100% and on AVAPS. Patient continues to be hypoxic requiring 100% FiO2 and has been dependent on NIPPV for last few days. He is mildly tachypneic but not in any distress. No use accessory muscles and he is able to speak full sentences. His oxygenation is adequate but right at the border. He also is not in any respiratory distress except mild tachypnea. 04/18 I again had long and extensive discussion with the patient and explained him his current status of respiratory failure, no significant improvement and his dependence on NIPPV. I discussed option of intubation and mechanical ventilation and recommended at this point he is a candidate for the patient mechanical ventilation. Patient is strongly opposed to intubation and mechanical ventilation at this time. He feels that his breathing is better and like to rough it out with BiPAP and see if he gets better. He he feels that if he goes on him ventilator he will never come off of it and will on the ventilator. He told me that his son told him not to go on mechanical ventilation as he also is afraid that patient will never come off the ventilator and will from his COVID-19 pneumonia. I explained him that he does have a high risk of mortality and significant chance of him not being able to wean from mechanical ventilation. He verbalized understanding of the situation. Patient continues to maintain that he will be okay with intubation and mechanical ventilation if he is in respiratory distress or unable to keep his oxygenation at acceptable level with NIPPV. He told me that he would want to be on a ventilator for 2 weeks and if he is not improving and coming off the ventilator by then he would not want to continue in that state. 04/19 patient remains adamant this time and is refusing intubation and mechanical ventilation. I will try Airvo with a non-rebreather see if patient tolerates otherwise will go back on BiPAP 04/20 this morning I had long discussion with patient again. He was adamant again that he did not wanted intubation and was okay to continue with BiPAP. I explained him that he has been dependent on BiPAP for many days now and has not made any significant progress. Also that due to his nausea and episode of vomiting BiPAP would be contraindicated. I explained him that my recommendation would be to be intubated and go on mechanical ventilation although it does come with it is on risk I explained to the patient including further deterioration of respiratory failure, and not being weaned off ventilator 1 if he improves and . We tried Airvo with non-rebreather mask see if patient could tolerate coming off BiPAP and maintain his oxygenation but patient's saturation dropped into 70s. Again explained him that patient does have a choice of continuing BiPAP if he chooses to be DNI irrespective of his condition but patient did not want to be DNR DNI. He requested the BiPAP be replaced so that he can make phone calls to his family members and make a decision. Spoke to his family members by phone and chose to proceed with mechanical ventilation as this was the only option left at this point considering he has not made any significant improvement of with BiPAP at, has been on dependent on BiPAP for close to weak and is now also having nausea and vomiting. Patient had complicated and difficult intubation process had a brief PEA arrest post intubation due to hypoxia. Patient is now intubated sedated and paral
--- NOTE | 2022-04-20 11:13 | WPDPROCEDUR ---
Procedures Intubation Intubation Date: 04/20/22 Intubation Time: 10:00 Consent: Verbal consent was obtained from the patient A pre-procedural Time-Out was completed immediately before starting the procedure and confirmed: Patient Identification, Site, Procedure, Patient Position and the Availability of Requisite Equipment: Yes Sedative: etomidate Mg given: 20 Paralytic: rocuronium Mg given: 50 Laryngoscope: fiber optic video scope Assist device used: fiber optic device ET tube size: cuffed Tube secured depth (cm): 25 Tube secured location: lips Tube placement confirmation: visualized tube passing through cords, equal breath sounds bilaterally, no breath sounds over epigastrium and confirmation by capnometry Patient tolerated procedure: other Intubation complications: difficult intubation Additional comments: Patient was hypoxic on BiPAP at 100% FiO2 prior to intubation. Patient was given medications and was bag ventilated. His saturation dropped to 70s and despite bagging with a PEEP valve we would not able to get his saturations above 70s. Intubation was attempted patient had a short thick neck and a very anterior trachea. Despite having a good view the ET tube would not point towards course. Patient's saturation dropped. ET tube was withdrawn and patient was bag ventilated again. We were only able to get the saturation up to 60. I bent the stylet into a hyperacute angle and made another attempt. On 2nd attempt I was able to intubate patient. Post intubation his saturation remained low patient was bag ventilated he fell. Patient became bradycardic and had a brief PEA arrest where nurse could not feel pulses. Patient was in sinus bradycardia. CPR was initiated he required required 1 round of CPR and 1 epinephrine before Rosc was obtained on pulse check.
--- NOTE | 2022-04-20 11:16 | PDCODEBLUE ---
Code Blue Note Code Blue Note Time Arrived at Code Blue: 1013 Initial Rhythm on Arrival: PEA Airway Management: Pt being bagged on arrival Chest Compressions: Initiated upon arrival Cardiac Rhythm Post Code: Sinus tachycardia Code Blue Summary: Patient was being intubated for COVID pneumonia and was severely hypoxic. Intubation was difficult. Post intubation patient became bradycardic and lost his pulse as nurse could not feel pulse. CPR was immediately initiated. Patient was given 1 epinephrine and 2 amps of bicarb. On next best Check patient was in narrow complex tachycardia and had a strong pulse. Patient maintained his pulse and as the epi wear off patient went remained in sinus tachycardia. Blood pressure dropped and he was given 500 cc of saline bolus and was started on Levophed infusion. This time patient was sedated and paralyzed for mechanical ventilation also
[2022-04-20] MEDS: FENTANYL 2,500MCG/NS250ML(*CRX 2,500 MCG/250 ML BAG 10 MCG IV CONT (11:17)
[2022-04-20] MEDS: MIDAZOLAM 100MG/NS 100ML(*CRX) 100 MG/100 ML BAG IV CONT (11:18)
[2022-04-20] MEDS: NOREPINEPHRINE 8 MG/D5W 250 ML 8 MG/250 ML BAG 9.38 MG IV CONT (11:19)
[2022-04-20] MEDS: CISATRACURIUM BESYLATE 200 MG in DEXTROSE 5% 80 ML 14.29 ML IV CONT ×3 (11:19→16:58)
[2022-04-20 11:20] LABS: Hematocrit 43.2 % (42.0-52.0); Hemoglobin 14.1 g/dL (14.0-18.0); Mean Corpuscular HGB Conc 32.6 g/dl (32-36); Mean Corpuscular Hemoglobin 28.2 pg (26-34); Mean Corpuscular Volume 86.4 fl (80-100); Mean Platelet Volume 9.5 fl (7.4-10.4); Platelet Count Result 175 k/mm3 (150-375); Red Cell Distribution Width 14.3 % (11.5-14.5); White Blood Count 32.4 K/mm3 (4.5-10.0)
[2022-04-20] MEDS: MIDAZOLAM HCL (*CRX) 2 MG/2 ML VIAL 16 MG IV PUSH (11:21)
[2022-04-20] MEDS: SODIUM CHLORIDE 0.9% IV 500 ML 999 ML IV CONT (11:21)
[2022-04-20 11:22] LABS: Alanine Aminotransferase 80 U/L (6-50); Albumin Level 3.1 g/dL (3.5-5.1); Alkaline Phosphatase 177 U/L (38-126); Anion Gap 6 mmol/L (8-16); Aspartate Amino Transferase 107 U/L (17-59); Blood Urea Nitrogen 43 mg/dL (9-20); Calcium 7.7 mg/dL (8.4-10.2); Carbon Dioxide 31 mmol/L (22-30); Chloride 101 mmol/L (98-107); Estimated CRCL calculation 83 ml/min; Estimated Glomerular Filt Rate 56; Glucose 288 mg/dL (65-110); Lactic Acid Reflex 2.6 mmol/L (0.7-2.0); Magnesium 2.5 mg/dL (1.6-2.3); Phosphorus 5.6 mg/dL (2.5-4.5); Potassium 4.2 mmol/L (3.4-5.0); Sodium 138 mmol/L (137-145)
--- NOTE | 2022-04-20 11:26 | P.PCNBED_ITS ---
Procedures Arterial Line Arterial Line Date: 04/20/22 Arterial Line Time: 10:45 Discussed with the patient/family/POA, the placement of an arterial catheter, including its clinical necessity/indication and associated potential risks, benefits and alternatives.: Yes Patient/family/POA and/or understands and acknowledges the need to proceed with the arterial catheter insertion as an important element of the patient's clinical management.: Yes Time Out Performed: Yes Patient Position: supine Ict Sales Representative Prep: sterile gown, sterile gloves and mask Site: right Site Prep: chlorhexidine Technique used: guide wire technique Length: 12 cm Closure/Dressing: suture and transparent dressing Patient tolerated procedure: well Complications: none
[2022-04-20 11:30] LABS: Alveolar/Arterial O2 Gradient 570.4 mmHg; Base Excess ABG -4.8 mEq/l (+/-2.0); Carboxyhemoglobin 0.8 % THb (0-2.0); Fractional Inspired Oxygen 100 %; HCO3 ABG 22.1 mEq/l (22.0-26.0); Methemoglobin ABG 0.4 %THb (0-1.5); Oxygen Saturation ABG 96.4 % (95.0-100.0); Oxyhemoglobin 94.7 % THb (90.0-100.0); PCO2 ABG 47.7 mmHg (35.0-45.0); PO2 ABG 94.9 mmHg (80.0-100.0); PO2 FiO2 Ratio Arterial Blood 0.95 %; Reduced Hemoglobin 4.1 %THb (0-5.0)
[2022-04-20 11:32] LABS: Modified Allen's Test Pass; Site Drawn ARTLINE; pH ABG 7.284 (7.350-7.450)
[2022-04-20 11:33] LABS: Arterial Blood Gas PEEP 18 cmH2O; Arterial Blood Gas Tidal Volume 480 ml; Arterial Blood Gas Vent Mode ASSIST CONTROL; Arterial Blood Gas Ventilator rate 28 /MIN; Device VENTILATOR
[2022-04-20 11:38] LABS: Troponin I 0.047 ng/mL (0.000-0.034)
--- NOTE | 2022-04-20 11:40 | ECG_ITS ---
Measurements Intervals [place] Rate: 78 P: 29 SD: 167 QRS: -12 QRSD: 114 T: 23 QT: 402 QTc: 459 Interpretive Statements SINUS RHYTHM MODERATE INTRAVENTRICULAR CONDUCTION DELAY [110+ ms QRS DURATION] NONSPECIFIC T-WAVE ABNORMALITY ABNORMAL ECG COMPARED TO ECG 04/14/2022 18:06:04 INTRAVENTRICULAR CONDUCTION DELAY NOW PRESENT Electronically Signed On 04-20-2022 13:42:54 MINE SUPERINTENDENT by Geovanny Funes M.D.
--- NOTE | 2022-04-20 11:46 | PCFNICU ---
ICU Rounding Note: Pt current nutrition is Glucerna 1.2 at 50 ml/hr. Nutrition recommendation: Vital AF 1.2 at 75 ml/hr. Last recorded weight is 158.8 kg. Bowel Motility:+BM reported 04/20 Labs Reviewed:Glu 288, GFR 43, Alb 3.1,TG 329,GFR 56 Meds Noted:Remdesivir,Decadron,NovoLog, Lantus, Lovenox, Protonix, Versed, Fentanyl. Skin: WNL Additional Notes: Patient intubated today. Tube feedings of Glucerna 1.2 goal rate at 50 ml/hr. Recommend formula change to Vital AF 1.2 goal rate at 75 ml/hr to better meet caloric and protein needs. Flush 30 ml q 4 hours. If tube feedings remain Glucerna recommend goal rate at 75 ml/hr. Additional Protein Modular of Prosource TF TID for additional 240 kcals and 60 gms protein. Following daily in ICU round and reassessing every Sunday and Sunday.
[2022-04-20 11:56] LABS: Band Neutrophils Percent 11 % (0-6); Lymphocytes Absolute Manual 0.32 K/mm3 (1.1-4.5); Metamyelocytes Percent 1 %; Monocytes Absolute Manual 0.64 K/mm3 (0.1-0.90); Monocytes Percent Manual 2 % (3-9); Neutrophils Percent Manual 85 % (46-73); Platelet Estimate Adequate (Adequate); Total Cells Counted 100
[2022-04-20 11:57] LABS: Anisocytosis 1+ (NORMAL); Schistocytes None Seen (NORMAL)
[2022-04-20 12:08] LABS: Glucose Point of Care 286 mg/dl (65-105)
--- NOTE | 2022-04-20 13:36 | PM.IMPN ---
Progress Note: A&P Assessment and Plan (1) Pneumonia due to 2019 novel coronavirus: Code(s): U07.1 - COVID-19; J12.82 - Pneumonia due to coronavirus disease 2019 Status: Acute Assessment and Plan: patient started on remdesivir Rocephin and Zithromax for antibacterial coverage blood cultures in progress supportive care 04/20/2022 interval history Patient tested positive at home on 04/09/2022 his symptoms were worsening was brought emergency department for further evaluation, was started on remdesivir and dexamethasone empirically patient was started on azithromycin and ceftriaxone, patient was seen by pulmonology and place the patient on BiPAP, however on 03/17/2022 patient symptoms or worsening was seen by bus driver supervisor and agreed if needed patient willing to be intubated, his symptoms were worsening again today, patient was seen by bus driver supervisor and evaluated the patient recommended intubation, however, patient continue to refuse intubation initially, patient discussed with his family and agreed for intubation and today patient was intubated, post intubation patient became hypertension was given bolus of 500cc and placed on Levophed, patient is now intubated will continue to monitor appreciate bus driver supervisor and gem technician. (2) Respiratory failure with hypoxia: Code(s): J96.91 - Respiratory failure, unspecified with hypoxia Status: Acute Assessment and Plan: continue supplemental oxygen by nasal cannula (3) GERD (gastroesophageal reflux disease): Code(s): K21.9 - Gastro-esophageal reflux disease without esophagitis Status: Acute Assessment and Plan: PPI (4) Diastolic dysfunction: Code(s): I51.89 - Other ill-defined heart diseases Status: Acute Assessment and Plan: continue to monitor (5) SHANNAN (obstructive sleep apnea): Code(s): G47.33 - Obstructive sleep apnea (adult) (pediatric) Status: Acute Assessment and Plan: CPAP at nighttime Subjective Date/time seen: 04/20/22 13:36 04/20/2022 interval history Patient tested positive at home on 04/09/2022 his symptoms were worsening was brought emergency department for further evaluation, was started on remdesivir and dexamethasone empirically patient was started on azithromycin and ceftriaxone, patient was seen by pulmonology and place the patient on BiPAP, however on 03/17/2022 patient symptoms or worsening was seen by bus driver supervisor and agreed if needed patient willing to be intubated, his symptoms were worsening again today, patient was seen by bus driver supervisor and evaluated the patient recommended intubation, however, patient continue to refuse intubation initially, patient discussed with his family and agreed for intubation and today patient was intubated, post intubation patient became hypertension was given bolus of 500cc and placed on Levophed, patient is now intubated will continue to monitor appreciate bus driver supervisor and gem technician. Review of Systems Review of Systems: ROS unobtainable: Yes unobtainable due to endotracheal tube Exam Narrative: morbidly obese Patient is comfortable, NAD HEENT: ET tube in place. LUNGS: slight labored breathing ABD: distended Lower extremities: no edema SKIN: nonjaundiced Neuro: grossly intact. Objective Data Vital Signs Vital Signs: Vital Signs - 24 hr 04/19/22 14:00 04/19/22 14:00 04/19/22 14:39 Temperature Pulse Rate 101 H 96 100 Respiratory Rate 28 H 36 H Blood Pressure 161/95 H Pulse Oximetry 88 L 92 Oxygen Delivery BiPAP Fraction of Inspired Oxygen 04/19/22 14:54 04/19/22 16:00 04/19/22 16:00 Temperature 98.0 F Pulse Rate 98 70 110 H Respiratory Rate 36 H 21 H 27 H Blood Pressure 173/88 H Pulse Oximetry 92 90 Oxygen Delivery BiPAP Fraction of Inspired Oxygen 90 04/19/22 16:46 04/19/22 16:59 04/19/22 16:00 Temperature Pulse Rate 100 108 H 110 H Respiratory Rate 36
[2022-04-20 14:04] LABS: Reflex Lactic Acid Yes or No Add Lactic
[2022-04-20] MEDS: ENOXAPARIN 40 MG/0.4 ML SYRINGE SUB-Q ×2 (14:06→20:48)
[2022-04-20] MEDS: ASPIRIN 81 MG ENTERIC TABLET PO (14:06)
[2022-04-20] MEDS: EZETIMIBE 10 MG TABLET PO (14:06)
[2022-04-20 14:46] LABS: Lactic Acid 1.6 mmol/L (0.7-2.0)
[2022-04-20 17:10] LABS: Glucose Point of Care 263 mg/dl (65-105)
[2022-04-20 17:44] LABS: Troponin I 0.168 ng/mL (0.000-0.034)
[2022-04-20] MEDS: REMDESIVIR 100 MG/NS 250 ML 100 MG/250 ML BAG 250 MG IVPB (21:03)
[2022-04-20 21:13] LABS: Glucose Point of Care 238 mg/dl (65-105)
[2022-04-20] MEDS: MINERAL OIL/WHITE PETROLATUM OINTMENT 1 APPLIC EACH EYE (23:09)
[2022-04-20 23:50] LABS: Troponin I 0.177 ng/mL (0.000-0.034)
[2022-04-21] VITALS (80 sets, daily range): BP systolic 76–162; BP diastolic 44–95; PULSE 77–121; RESP 30; TEMP 37–38.3; O2SAT 89–100
--- NOTE | 2022-04-21 | ECHO_ITS ---
Patient Info Name: Charles Posadas Age: 61 years : 1960 Gender: Male Ht: 73 in Wt: 350 lbs BSA: 2.94 m2 HR: 98 bpm Heart Rhythm: Sinus Rhythm Exam Date: 04/21/2022 10:48 AM Exam Location: [facility] Patient Status: Inpatient Admit Date: 04/14/2022 Staff Ordering Physician: Cristofer Duckworth MD Forepart Rounder: Dariusz Morris RDCS, RT Attending Provider: Maricruz Winkler MD Exam Type: CA echo doppler color flow Study Info Indications I50.9 - Heart failure, unspecified Summary 1. Technically difficult echocardiogram because of intubation, mechanical ventilation and obesity. 2. Definity contrast injected to improve visualization. 3. Normal left ventricular size and hyperdynamic systolic function. 4. Grade 1 diastolic noncompliance. 5. No significant valvular dysfunction noted on Doppler. Left Ventricle Left ventricular chamber dimension is normal. Left ventricular systolic function is hyperdynamic, estimated at >70%. The left ventricular diastolic function is grade I diastolic dysfunction. Right Ventricle Right ventricular chamber dimension is normal. Left Atria Left atrial chamber dimension is normal. Right Atria Right atrial chamber dimension is not well visualized. Aortic Valve The aortic valve is normal. Pulmonic Valve The pulmonic valve is not well visualized. Mitral Valve The mitral valve has normal leaflets. Tricuspid Valve The tricuspid valve leaflets are not well visualized. Pericardium/Pleural The pericardium appears normal. Aorta The aortic root size at the sinus of Valsalva is not well visualized. Left Ventricular Outflow Tract Name Value Normal LVOT 2D LVOT Diameter 2.1 cm LVOT Doppler LVOT Peak Gradient 9 mmHg LVOT Mean Gradient 6 mmHg LVOT VTI 29 cm LVOT VTI/AV VTI Ratio 0.8 LVOT Stroke Volume 104 ml LVOT CO 10.1 l/min LVOT CI 3.4 l/min/m2 Mitral Valve Name Value Normal MV Doppler MV Decel Stokes 399 cm/s2 MV PHT 46 ms MV Area (PHT) 4.8 cm2 4.0-5.0 MV Diastolic Function MV E Peak Velocity 64 cm/s MV A Peak Velocity 84 cm/s MV E/A 0.8 MV Decel Time 159 ms MV Annular TDI MV E/e' (Septal) 15.2 <=8.0 MV E/e' (Lateral) 11.3 <=8.0 MV E/e' (Average) 13.2 Ao
[2022-04-21] MEDS: IPRATROPIUM BR 0.02% INH SOLN 0.5 MG/2.5 ML VIAL INHALATION ×6 (00:05→19:57)
[2022-04-21] MEDS: ALBUTEROL SULFATE NEB 2.5 MG/3 ML INH INHALATION ×6 (00:05→19:57)
[2022-04-21] MEDS: INSULIN ASPART (*BKC) 100 UNITS/ML SUB-Q ×5 (00:29→21:01)
[2022-04-21 00:57] LABS: Glucose Point of Care 205 mg/dl (65-105)
[2022-04-21] MEDS: CISATRACURIUM BESYLATE 200 MG in DEXTROSE 5% 80 ML 11.91 ML IV CONT ×2 (01:46→11:46)
[2022-04-21] MEDS: NOREPINEPHRINE 8 MG/D5W 250 ML 8 MG/250 ML BAG 5.63 MG IV CONT (01:50)
[2022-04-21] MEDS: MIDAZOLAM 100MG/NS 100ML(*CRX) 100 MG/100 ML BAG IV CONT (04:14)
[2022-04-21 04:39] LABS: Hemoglobin 14.4 g/dL (14.0-18.0); Mean Corpuscular Hemoglobin 28.1 pg (26-34); Mean Corpuscular Volume 87.9 fl (80-100); Mean Platelet Volume 9.7 fl (7.4-10.4); Platelet Count Result 131 k/mm3 (150-375); Red Blood Count 5.12 M/mm3 (4.6-6.20); Red Cell Distribution Width 14.3 % (11.5-14.5); White Blood Count 27.3 K/mm3 (4.5-10.0)
[2022-04-21 04:40] LABS: Glucose Point of Care 202 mg/dl (65-105)
[2022-04-21 04:40] LABS: Alveolar/Arterial O2 Gradient 261.5 mmHg; Base Excess ABG -0.3 mEq/l (+/-2.0); Fractional Inspired Oxygen 60 %; HCO3 ABG 27.9 mEq/l (22.0-26.0); Methemoglobin ABG 0.5 %THb (0-1.5); Oxygen Content ABG 20.7 %vol (16.0-22.0); Oxygen Saturation ABG 96.7 % (95.0-100.0); Oxyhemoglobin 95.3 % THb (90.0-100.0); PO2 ABG 100.3 mmHg (80.0-100.0); PO2 FiO2 Ratio Arterial Blood 1.67 %; Reduced Hemoglobin 3.2 %THb (0-5.0); Total Hemoglobin 15.4 g/dL (12.0-18.0)
[2022-04-21 04:41] LABS: Site Drawn ARTLINE; pH ABG 7.285 (7.350-7.450)
[2022-04-21 04:43] LABS: Arterial Blood Gas PEEP 18 cmH2O; Arterial Blood Gas Vent Mode CMV; Arterial Blood Gas Ventilator rate 30 /MIN; Device VENTILATOR
[2022-04-21 04:44] LABS: Arterial Blood Gas Tidal Volume 480 ml
[2022-04-21 04:54] LABS: Alanine Aminotransferase 92 U/L (6-50); Albumin Level 3.1 g/dL (3.5-5.1); Alkaline Phosphatase 185 U/L (38-126); Anion Gap 4 mmol/L (8-16); Aspartate Amino Transferase 75 U/L (17-59); Blood Urea Nitrogen 63 mg/dL (9-20); Calcium 7.8 mg/dL (8.4-10.2); Carbon Dioxide 31 mmol/L (22-30); Chloride 106 mmol/L (98-107); Estimated CRCL calculation 42 ml/min; Estimated Glomerular Filt Rate 26; Glucose 197 mg/dL (65-110); Magnesium 2.9 mg/dL (1.6-2.3); Potassium 4.9 mmol/L (3.4-5.0); Sodium 141 mmol/L (137-145)
[2022-04-21 04:55] LABS: INR 1.4; Prothrombin Time 16.6 Seconds (11.1-14.7)
[2022-04-21] MEDS: FENTANYL 2,500MCG/NS250ML(*CRX 2,500 MCG/250 ML BAG 12.5 MCG IV CONT (05:39)
[2022-04-21] MEDS: CENTRAL LINE FLUSH 10 ML IV PUSH ×3 (05:43→21:01)
[2022-04-21] MEDS: PANTOPRAZOLE SODIUM IV 40 MG VIAL IV PUSH (08:15)
[2022-04-21] MEDS: MINERAL OIL/WHITE PETROLATUM OINTMENT 1 APPLIC EACH EYE ×2 (08:15→21:00)
[2022-04-21] MEDS: ENOXAPARIN 40 MG/0.4 ML SYRINGE SUB-Q ×2 (08:15→21:00)
[2022-04-21] MEDS: INSULIN GLARGINE (*BKC) 100 UNITS/ML 25 UNITS SUB-Q (08:15)
[2022-04-21] MEDS: ASPIRIN 81 MG ENTERIC TABLET PO (08:15)
[2022-04-21 09:22] LABS: Glucose Point of Care 197 mg/dl (65-105)
--- NOTE | 2022-04-21 09:54 | PCNFU ---
Nutrition Follow-Up Complete: Inadequate Oral Intake as related to COVID 19 positive as related to poor po intake reported. Goal: Meet estimated nutritional needs Patient is progressing towards goal. We will continue current goal. Pt current nutrition is Glucerna 1.2 at 20 ml/hr. Last recorded weight is 146.6 kg. Bowel Motility:+BM reported 04/20 Labs Reviewed:GFR 26, BUN 63, Cr 2.5,Alb 3.1,Glu 197, Mg 2.9 Meds Noted:Remdesivir,Decadron,NovoLog, Lantus, Lovenox, Protonix, Versed, Fentanyl. Skin: WNL Additional Notes: Patient remains on mechanical vent and tube feedings of Glucerna 1.2 at 20 ml/hr. Spoke with Precinct Commanding Officer and nursing today. Elevated residuals noted. Plans to keep tube feeding rate at 20 ml/hr at this time. Goal rate at 75 ml/hr-providing 1980 kcals/79 gms protein/1328 ml water. Flush 30 ml q 4 hours. Recommend additional Protein Modulars of Prosource TID providing an additional 240 kcals and 60 gms protein due to increased protein needs for COVID 19. Will monitor in ICU rounds and reassessing every Sunday and Sunday.
--- NOTE | 2022-04-21 10:03 | PC.NURSE ---
Patient turned supine at 0950 a.m.
[2022-04-21] MEDS: METOCLOPRAMIDE HCL 10 MG/10 ML SOLN UDC FEED TUBE ×3 (10:04→17:56)
[2022-04-21] MEDS: SODIUM CHLORIDE 0.45% 1,000 ML 100 ML IV CONT (10:04)
[2022-04-21] MEDS: PERFLUTREN LIPID MICROSPHERES 1.5 ML VIAL DILUTED TO 10 ML TOTAL VOLUME IV PUSH (11:05)
--- NOTE | 2022-04-21 11:06 | IVDEFINITY ---
Prior to administration of IV Definity the patient was educated on the risks and benefits of the imaging enhancing agent including potential adverse side effects. The patient verbalized understanding. Allergies were verified. No exclusion criteria were identified and at least one of the following inclusion criteria were met: 1) physician request, 2) patient technically difficult to image (per the [place] [employer] guidelines of two or more segments not discernable within the apical view), or 3) questionable left ventricular function. ?
[2022-04-21] MEDS: ALBUMIN HUMAN 25% 25 GM/100 ML 100 ML IVPB ×2 (11:42→17:00)
[2022-04-21 12:05] LABS: Glucose Point of Care 206 mg/dl (65-105)
[2022-04-21 13:25] LABS: Alveolar/Arterial O2 Gradient 328.5 mmHg; Base Excess ABG -2.8 mEq/l (+/-2.0); Carboxyhemoglobin 0.8 % THb (0-2.0); Fractional Inspired Oxygen 65 %; HCO3 ABG 24.4 mEq/l (22.0-26.0); Methemoglobin ABG 0.4 %THb (0-1.5); Oxygen Content ABG 19.2 %vol (16.0-22.0); Oxygen Saturation ABG 94.1 % (95.0-100.0); Oxyhemoglobin 93.2 % THb (90.0-100.0); PO2 ABG 78.4 mmHg (80.0-100.0); PO2 FiO2 Ratio Arterial Blood 1.21 %; Reduced Hemoglobin 5.6 %THb (0-5.0); Total Hemoglobin 14.6 g/dL (12.0-18.0)
[2022-04-21 13:27] LABS: Arterial Blood Gas PEEP 15 cmH2O; Arterial Blood Gas Vent Mode CMV; Arterial Blood Gas Ventilator rate 30 /MIN; Device VENTILATOR; Site Drawn ARTLINE
[2022-04-21 13:28] LABS: Arterial Blood Gas Tidal Volume 480 ml
[2022-04-21] MEDS: SODIUM BICARBONATE 8.4% 50 MEQ/50 ML SYRINGE 100 MEQ IV PUSH (14:09)
--- NOTE | 2022-04-21 17:06 | PM.IMPN ---
Progress Note: A&P Assessment and Plan (1) Pneumonia due to 2019 novel coronavirus: Code(s): U07.1 - COVID-19; J12.82 - Pneumonia due to coronavirus disease 2019 Status: Acute Assessment and Plan: patient started on remdesivir Rocephin and Zithromax for antibacterial coverage blood cultures in progress supportive care 04/21/2022 interval history Patient tested positive at home on 04/09/2022 his symptoms were worsening was brought emergency department for further evaluation, was started on remdesivir and dexamethasone empirically patient was started on azithromycin and ceftriaxone, patient was seen by pulmonology and place the patient on BiPAP, however on 03/17/2022 patient symptoms were worsening was seen by control clerk repairs and agreed if needed patient willing to be intubated, his symptoms were worsening again, patient was seen by control clerk repairs and evaluated the patient recommended intubation, however, patient continue to refuse intubation initially, patient discussed with his family and agreed for intubation and on 04/20 patient was intubated, post intubation patient became hypotension was given bolus of 500cc and placed on Levophed, today patient clinical symptoms were worsening and control clerk repairs had a long discussion with the patient's brother and their family was requested the patient transfer to a tertiary care, control clerk repairs spoke with [facility] accepting control clerk repairs and patient is accepted and waiting for the bed will continue to monitor, again appreciate control clerk repairs and experimental mechanic (2) Respiratory failure with hypoxia: Code(s): J96.91 - Respiratory failure, unspecified with hypoxia Status: Acute Assessment and Plan: continue supplemental oxygen by nasal cannula (3) GERD (gastroesophageal reflux disease): Code(s): K21.9 - Gastro-esophageal reflux disease without esophagitis Status: Acute Assessment and Plan: PPI (4) Diastolic dysfunction: Code(s): I51.89 - Other ill-defined heart diseases Status: Acute Assessment and Plan: continue to monitor (5) SHANNAN (obstructive sleep apnea): Code(s): G47.33 - Obstructive sleep apnea (adult) (pediatric) Status: Acute Assessment and Plan: CPAP at nighttime Subjective Date/time seen: 04/21/22 17:06 04/21/2022 interval history Patient tested positive at home on 04/09/2022 his symptoms were worsening was brought emergency department for further evaluation, was started on remdesivir and dexamethasone empirically patient was started on azithromycin and ceftriaxone, patient was seen by pulmonology and place the patient on BiPAP, however on 03/17/2022 patient symptoms were worsening was seen by control clerk repairs and agreed if needed patient willing to be intubated, his symptoms were worsening again, patient was seen by control clerk repairs and evaluated the patient recommended intubation, however, patient continue to refuse intubation initially, patient discussed with his family and agreed for intubation and on 04/20 patient was intubated, post intubation patient became hypotension was given bolus of 500cc and placed on Levophed, today patient clinical symptoms were worsening and control clerk repairs had a long discussion with the patient's brother and their family was requested the patient transfer to a tertiary care, control clerk repairs spoke with [facility] accepting control clerk repairs and patient is accepted and waiting for the bed will continue to monitor, again appreciate control clerk repairs and experimental mechanic Review of Systems Review of Systems: ROS unobtainable: Yes unobtainable due to endotracheal tube Exam Narrative: morbidly obese Patient is comfortable, NAD HEENT: ET tube in place. LUNGS: slight labored breathing ABD: distended Lower extremities: no edema SKIN: nonjaundiced Neuro: grossly intact. Objective Data Vital Signs Vital Signs: Vital Signs - 24 hr 04/20/22 17:09 04/20/22 17:17 04/20/22 17:24 Temperature
[2022-04-21 17:08] LABS: Glucose Point of Care 258 mg/dl (65-105)
[2022-04-21] MEDS: CISATRACURIUM BESYLATE 200 MG in DEXTROSE 5% 80 ML 14.29 ML IV CONT (18:24)
[2022-04-21 21:12] LABS: Glucose Point of Care 244 mg/dl (65-105)
--- NOTE | 2022-04-22 08:52 | PM.TDS ---
Transfer Discharge Sum: Prov Provider Date of admission: 04/14/22 20:24 Primary care physician: Bronson Talley MD Admitting clinician: Maricruz Winkler MD Consults: 04/15/22 09:42 Consult to Physician Routine Comment: Consulting Provider: Aly Oliva call center professional/MD group to consult: Pulmonary Reason for consultation: Covid pneumonia Has provider been notified: Yes 04/16/22 Consult to Physician Routine Comment: Consulting Provider: Washington Hwang call center professional/MD group to consult: icu design architect Reason for consultation: icu admission Has provider been notified: Yes 04/19/22 10:18 Consult to Dietitian Routine Reason for Consult:: TPN DS: Admitting Diagnosis Discharge Date 04/21/22 Admitting Diagnosis shortness of breath Transfer Discharge Sum: Med Medications Active and Home Medications: Home Medications aspirin 81 mg tablet,delayed release 81 mg PO DAILY 04/15/19 [History Confirmed 04/15/22] losartan 100 mg tablet 100 mg PO DAILY 04/15/19 [History Confirmed 04/15/22] ezetimibe 10 mg tablet (Zetia) 10 mg PO DAILY #90 tabs 03/14/21 [Rx Confirmed 04/15/22] amlodipine 10 mg tablet (Norvasc) 10 mg PO DAILY #90 tabs 10/10/21 [Rx Confirmed 04/15/22] guanfacine 2 mg tablet 2 mg PO QPM #90 tabs 10/10/21 [Rx Confirmed 04/15/22] minoxidil 2.5 mg tablet 2.5 mg PO DAILY #90 tabs 10/10/21 [Rx Confirmed 04/15/22] omeprazole 40 mg capsule,delayed release 40 mg PO DAILY #90 caps 10/10/21 [Rx Confirmed 04/15/22] spironolactone 25 mg tablet 25 mg PO DAILY #90 tabs 10/10/21 [Rx Confirmed 04/15/22] cetirizine 10 mg tablet (Zyrtec) 10 mg PO DAILY 04/15/22 [History Confirmed 04/15/22] ibuprofen 600 mg tablet 600 mg PO Q6H PRN Pain 04/15/22 [History Confirmed 04/15/22] Transfer Discharge Sum: Hosp Hospital Course Hospital course: Charles Posadas is a 61 year old male 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 I updated them patient's current status including severe respiratory failure, current ventilator settings, shock, current treatment plan, acute on chronic kidney injury and guarded prognosis.? I answered all their questions.? They requested that I attempt transfer of patient to tertiary hospital.? I have called and provided information to [facility] transfer line and I am waiting for a call back from the triage physician. Addendum Documented By: ?Cristofer Duckworth MD 04/21/22 1334 Addendum Signed By: <Electronically signed by? Cristofer Duckworth MD> 04/21/22 1334 Progress Note: A&P Assessment and Plan (1) Respiratory failure with hypoxia: ?Code(s): J96.91 - Respiratory failure, unspecified with hypoxia ?Status:?Acute ?Assessment and Plan: Acute respiratory failure secondary to COVID 19 pneumonia ?Patient presented with increasing shortness of breath, hypoxia at home, initially was placed on nasal cannula, oxygen requirements? increased during the course of his stay in the intermediate Unit and patient was initiated on NIPPV and is, currently on 100% and on AVAPS. Patient continues to be hypoxic requiring 100% FiO2 and has been dependent on NIPPV for last few days.? He is mildly tachypneic but not in any distress.? No use accessory muscles and he is able to speak full sentences. His oxygenation is adequate but right at the border.? He also is not in any respiratory distress except mild tachypnea. 04/18 I again had long and extensive discussion with the patient and explained him his current status of respiratory failure, no significant improvement and his dependence on NIPPV.? I discussed option of intubation and mechanical ventilation and recommended at this point he is a candidate for the patient mechanical ventilation.? Patient is strongly opposed to intubation and mechanical ventilation at this time.? He feels that his breathing is better and like to rough it out with BiPAP and see if he ge
== END 2022-04-21 23:54 | disposition short-term general hospital (02) | DRG 208 ==
LOC: ANHED 19:15 → ANHIMU 04-15 02:24 → ANHICU 04-17 12:54 → ANHIMU 04-25 12:28
PROVIDERS: Emergency Medicine; Internal Medicine; Internal Medicine Pulmonary Disease; Admitting Provider Internal Medicine; Emergency Provider Emergency Medicine; PCP Family Medicine; Visit Provider Family Medicine
DX: U07.1 COVID-19 (principal); J12.82 Pneumonia due to coronavirus disease 2019; J96.01 Acute respiratory failure with hypoxia; J18.9 Pneumonia, unspecified organism; I46.9 Cardiac arrest, cause unspecified; N17.9 Acute kidney failure, unspecified; R57.9 Shock, unspecified; I13.0 Hypertensive heart and chronic kidney disease with heart failure and stage 1 through stage 4 chronic kidney disease, or unspecified chronic kidney disease; I50.32 Chronic diastolic (congestive) heart failure; N18.9 Chronic kidney disease, unspecified; I25.10 Atherosclerotic heart disease of native coronary artery without angina pectoris; E78.5 Hyperlipidemia, unspecified; E11.22 Type 2 diabetes mellitus with diabetic chronic kidney disease; E66.01 Morbid (severe) obesity due to excess calories; K21.9 Gastro-esophageal reflux disease without esophagitis; G47.33 Obstructive sleep apnea (adult) (pediatric); R00.1 Bradycardia, unspecified; Z96.653 Presence of artificial knee joint, bilateral; Z28.311 Partially vaccinated for COVID-19; Z85.528 Personal history of other malignant neoplasm of kidney
CPT/HCPCS: 31500; 36415; 36569; 36600; 71045; 71275; 80048; 80053; 80202; 82375; 82565; 82805; 82948; 83036; 83050; 83605; 83735; 83880; 84100; 84460; 84466; 84478; 84484; 85025; 85027; 85380; 85610; 85730; 86140; 86850; 86900; 86901; 87040; 87081; 87636; 93005; 93306; 94002; 94003; 94640; 94660; 96360; 96361; 99285; A9270; C1751; C9113; J0131; J0171; J0248; J0360; J0456; J0461; J0692; J0696; J1100; J1650; J1815; J1940; J2250; J2405; J2997; J3010; J3370; J7030; J7040; J7060; P9047; Q0249; Q9957; Q9967